=== PATIENT | female | born 1965 | race Caucasian/White ===

== ENCOUNTER 2019-03-05 18:46 | Observation (INO) | payer OTHER ==
--- OUTSIDE RECORDS SUMMARY | 2019-03-05 18:49 | XMS REPORT | Summary of Care ---
:[address] [facility] Address [address] [place] [address]- Encounter HQ Scott(DENISE) [id number] Date(s): 02/07/19 - 02/07/19 [facility] [address] [place] [address]- [phone] Discharge Disposition: Home or Self Care Attending Physician: Chon Reynoso MD Referring Physician: Chon Reynoso MD Vital Signs Most recent to oldest [Reference Range]: 1 Height 162.56 cm (02/07/19 1:39 PM) Blood Pressure [90-140/60-90 mmHg] 170/86 mmHg *HI* (02/07/19 1:39 PM) Respiratory Rate [14-20 BRMIN] 16 BRMIN (02/07/19 1:39 PM) Peripheral Pulse Rate [60-100 bpm] 83 bpm (02/07/19 1:39 PM) Weight 90.909 kg (02/07/19 1:39 PM) Body Mass Index 34.4 m2 (02/07/19 1:39 PM) Problem List Condition Effective Dates Status Health Status Informant Anxiety(Confirmed) Active Carpal tunnel syndrome(Confirmed) Active Cervical disc disorder(Confirmed) Active Cranial neuritis(Confirmed) Active Fibromyalgia(Confirmed) Active Hypertension(Confirmed) Active Insomnia(Confirmed) Active Lumbar radiculopathy(Confirmed) Active Earache(Confirmed) Active Panic disorder(Confirmed) Active Allergies, Adverse Reactions, Alerts Substance Reaction Severity Status morphine Moderate Active traMADol Moderate Active Medications Abilify PO, Daily, 0 Refill(s) Start Date: 02/07/19 Status: Orderedgabapentin 600 mg oral tablet =1 tab, PO, TID, # 90 tab, 3 Refill(s), Pharmacy: [facility] [id number] Start Date: 02/07/19 Status: Ordered Results No data available for this section Immunizations No data available for this section Procedures Procedure Date Related Diagnosis Body Site Status Ablation Completed Carpal tunnel decompression1 Completed Cholecystectomy Completed Tubal ligation Completed 1surgery Social History Social History Type Response Substance Abuse Use: None. 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 Alcohol Current, Frequency: 1-2 times per week. Smoking Status Former smoker; Type: Cigarettes; Exposure to Tobacco Smoke None ; Cigarette Smoking Last 365 Days No; Reg Smoking Cessation Counseling No entered on: 02/07/19 Assessment and Plan No data available for this section
--- OUTSIDE RECORDS SUMMARY | 2019-03-05 18:49 | XMS REPORT | Summary of Care ---
:1965 Author Organization [facility] Address [address] [place] [address]- Encounter HQ Scott(DENISE) [id number] Date(s): 02/07/19 - 02/07/19 [facility] [address] [place] [address]- [phone] Discharge Disposition: Home or Self Care Attending [...] TID, # 90 tab, 3 Refill(s), Pharmacy: [facility] [id number] Start Date: 02/07/19 Status: Ordered Results No data available for this section Immunizations No data available for this section Procedures Procedure Date Related Diagnosis Body Site Status Ablation Completed Carpal tunnel decompression1 Completed Cholecystectomy Completed Tubal ligation Completed 1surgery Social History Social History Type Response Substance Abuse Use: None. 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 Alcohol Current, Frequency: 1-2 times per week. Smoking Status Former smoker; Type: Cigarettes; Exposure to Tobacco Smoke None ; Cigarette Smoking Last 365 Days No; Reg Smoking Cessation Counseling No entered on: 02/07/19 Assessment and Plan No data available for this section
--- OUTSIDE RECORDS SUMMARY | 2019-03-05 18:49 | XMS REPORT | Continuity of Care Document ---
:1965 Author Organization Interface Problems Problem Status Onset Classification Date Comments Source Date Reported Anxiety Active Problem 02/10/2019 [facility] Carpal tunnel Active Problem 02/10/2019 [facility] Cervical disc Active Problem 02/10/2019 [facility] Cranial neuritis Active Problem 02/10/2019 [facility] Fibromyalgia Active Problem 02/10/2019 [facility] Hypertension Active Problem 02/10/2019 [facility] Insomnia Active Problem 02/10/2019 [facility] Lumbar Active Problem 02/10/2019 [facility] Earache Active Problem 02/10/2019 [facility] Panic disorder Active Problem 02/10/2019 [facility] Medications Medication Details Route Status Patient Ordering Order Source Instructions Provider Date gabapentin =1 tab, PO, Active 02/08/20 [facility] 600 MG Oral TID, # 90 19 [facility] Tablet tab, 3 Refill(s), Pharmacy: [facility] [id number] Abilify PO, Daily, 0 Active 02/08/20 [facility] Refill(s) 19 [facility] Allergies, Adverse Reactions, Alerts Substance Category Reaction Severity Reaction Status Date Comments Source type Reported morphine Assertion Moderate Drug Active [facility] traMADol Assertion Moderate Drug Active [facility] Immunizations Immunization Date Given Site Status Last Updated Comments Source Results Order Results Value Reference Date Interpretation Comments Source Name Range Vital Signs Vital Sign Value Date Comments Source Weight 90.909 02/07/2019 [facility] BMI Calculated 34.4 02/07/2019 [facility] Height 162.56 cm 02/07/2019 [facility] Heart Rate 83 02/07/2019 [facility] Systolic (mm Hg) 170 02/07/2019 [facility] Diastolic (mm Hg) 86 02/07/2019 [facility] Respitory Rate 16 02/07/2019 [facility] Encounters Location Location Encounter Encounter Reason Attending ADM DC Status Source Details Type Number For Provider Date Date Visit Outpatient [id number] DAVID 02/21 Active [facility] [place] [facility] [id number] DAVID 03/08 Active [facility] [id number] DAVID 04/05 Active [facility] [place] Outpatient [id number] DAVID 05/18 Active [facility] Outpatient [id number] DAVID 07/04 Active [facility] Outpatient [id number] DAVID 08/24 Active [facility] [place] Outpatient [id number] DAVID 10/04 Active [facility] [place] Outpatient [id number] DAVID 11/15 Active [facility] [place] Outpatient [id number] David 02/07 Active [facility] Outpatient [id number] David 02/07 02/08 [facility] [id number] David 06/14 Active [facility] [place] Procedures Procedure Code Date Perfomer Comments Source Ablation [id number] [facility] Carpal tunnel [id number] surgery [facility] decompression<sup>1</ Neuro sup> Cholecystectomy [id number] [facility] Tubal ligation [id number] [facility]
--- OUTSIDE RECORDS SUMMARY | 2019-03-05 18:49 | XMS REPORT | Summary of Care ---
:1965 Author Organization [facility] Address [address] [place] [address]- Encounter HQ Scott(DENISE) [id number] Date(s): 02/07/19 - 02/07/19 [facility] [address] [place] [address]- [phone] Discharge Disposition: Home or Self Care Attending [...] TID, # 90 tab, 3 Refill(s), Pharmacy: [facility] [id number] Start Date: 02/07/19 Status: Ordered Results No data available for this section Immunizations No data available for this section Procedures Procedure Date Related Diagnosis Body Site Status Ablation Completed Carpal tunnel decompression1 Completed Cholecystectomy Completed Tubal ligation Completed 1surgery Social History Social History Type Response Substance Abuse Use: None. 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 Alcohol Current, Frequency: 1-2 times per week. Smoking Status Former smoker; Type: Cigarettes; Exposure to Tobacco Smoke None ; Cigarette Smoking Last 365 Days No; Reg Smoking Cessation Counseling No entered on: 02/07/19 Assessment and Plan No data available for this section
--- OUTSIDE RECORDS SUMMARY | 2019-03-05 18:49 | XMS REPORT | Summary of Care ---
:1965 Author Organization [facility] Address [address] [place] [address]- Encounter HQ Scott(DENISE) [id number] Date(s): 02/07/19 - 02/07/19 [facility] [address] [place] [address]- [phone] Discharge Disposition: Home or Self Care Attending [...] TID, # 90 tab, 3 Refill(s), Pharmacy: [facility] [id number] Start Date: 02/07/19 Status: Ordered Results No data available for this section Immunizations No data available for this section Procedures Procedure Date Related Diagnosis Body Site Status Ablation Completed Carpal tunnel decompression1 Completed Cholecystectomy Completed Tubal ligation Completed 1surgery Social History Social History Type Response Substance Abuse Use: None. 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 Alcohol Current, Frequency: 1-2 times per week. Smoking Status Former smoker; Type: Cigarettes; Exposure to Tobacco Smoke None ; Cigarette Smoking Last 365 Days No; Reg Smoking Cessation Counseling No entered on: 02/07/19 Assessment and Plan No data available for this section
--- NOTE | 2019-03-05 19:54 | RAD REPORT ---
EXAM DESCRIPTION: RAD - Chest Single View - 03/05/2019 7:39 pm CLINICAL HISTORY: Chest pain, dyspnea COMPARISON: October 2014 TECHNIQUE: AP portable chest image was obtained 1936 hours . FINDINGS: Lungs are clear. Heart and vasculature are normal. No measurable pleural effusion and no p neumothorax. No acute bony abnormality seen. No acute aortic findings suspected. IMPRESSION: No acute cardiopulmonary process. No significant interval change.
--- NOTE | 2019-03-05 20:06 | ER ---
Nurse's Notes [facility] Name: Jerzy Liu Age: 53 yrs Sex: Female : 1965 Arrival Date: 03/05/2019 Time: 18:52 Bed 30 Private MD: Diagnosis: Chest pain, unspecified;Essential (primary) hypertension Presentation: 03/05 19:23 Presenting complaint: Patient states: seen by Dr. Ward today at 1630. pt insurance ak1 would not cover stat labs from his office for D-dimer so was instructed to come to ER for evaluation. pt c/o SOB that started last night. pt resp even and unlabored during triage, no resp distress noted. Transition of care: patient was not received from another setting of care. Onset of symptoms is unknown. Risk Assessment: Do you want to hurt yourself or someone else? Patient reports no desire to harm self or others. Care prior to arrival: None. 19:23 Method Of Arrival: Ambulatory ak 19:23 Acuity: KAREEN 3 ak1 21:13 Initial Sepsis Screen: Does the patient meet any 2 criteria? No. Patient's initial mg2 sepsis screen is negative. Does the patient have a suspected source of infection? No. Patient's initial sepsis screen is negative. 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 - Post-menopause ak1 Historical: - Allergies: 19:27 Morphine; ak1 19:27 tramadol; ak1 - Home Meds: 19:27 Xanax 1 mg Oral tab 1 tab 3 times per day [Active]; Xanax 1 mg Oral tab at night ak1 [Active]; trazodone Oral [Active]; Benadryl 25 mg Oral cap 2 caps night [Active]; gabapentin 600 mg oral tab 1 tab 3 times per day [Active]; Wellbutrin Oral 1 tab daily [Active]; Metoprolol Tartrate Oral 1 tab PRN [Active]; Clonazepam Oral 2 tabs at night [Active]; - PMHx: 19:27 Depression; Anxiety; Hypertension; ak1 - PSHx: 19:27 Tubal ligation; Carpal Tunnel Repair; Cholecystectomy; uterine ablasion; ak1 - Immunization history:: Adult Immunizations unknown. - Social history:: Smoking status: Patient/guardian denies using tobacco. - Ebola Screening: : No symptoms or risks identified at this time. - Family history:: not pertinent. Screenin:30 Abuse screen: Denies threats or abuse. Denies injuries from another. Nutritional ca1 screening: No deficits noted. Tuberculosis screening: No symptoms or risk factors identified. Fall Risk None identified. Assessment: 19:30 General: Appears in no apparent distress. comfortable, Behavior is calm, cooperative, ca1 appropriate for age. Pain: Complains of pain in chest Pain does not radiate. Pain currently is 1 out of 10 on a pain scale. at worst was 4 out of 10 on a pain scale. Pain began 1 day ago. Is intermittent. Neuro: Level of Consciousness is awake, alert, obeys commands, Oriented to person, place, time, situation. Cardiovascular: Heart tones S1 S2 present Capillary refill < 3 seconds Patient's skin is warm and dry. Rhythm is sinus bradycardia. Respiratory: Reports shortness of breath at rest since last night Airway is patent Respiratory effort is even, unlabored, Respiratory pattern is regular, symmetrical, Breath sounds are clear bilaterally. GI: Abdomen is round non-distended, Bowel sounds present X 4 quads. Abd is soft and non tender X 4 quads. : No deficits noted. No signs and/or symptoms were reported regarding the genitourinary system. EENT: No deficits noted. No signs and/or symptoms were reported regarding the EENT system. Derm: Skin is intact, is healthy with good turgor, Skin is pink, warm \T\ dry. Musculoskeletal: Circulation, motion, and sensation intact. Capillary refill < 3 seconds, Range of motion: limited in left ankle Pt has a walking boot on left leg. 20:20 Reassessment: Patient appears in no apparent distress at this time. Patient and/or ca1 family updated on plan of care and expected duration. Pain level reassessed. Patient is alert, oriented x 3, equal unlabored respirations, skin warm/dry/pink. 21:12 Reassessment: provider informed about patient's concern about the admission plan. she mg2 will wait for the tests results first before she decides if she wants to be admitted. 22:00 Reassessment: Patient appears in no apparent distress at this time. Patient and/or ca1 family updated on plan of care and expected duration. Pain level reassessed. Patient is alert, oriented x 3, equal unlabored respirations, skin warm/dry/pink. PT states she does not want to be in the hospital but if she needs to be she'll stay Patient denies pain at this time. 22:40 Reassessment: Patient appears in no apparent distress at this time. Patient is alert, ca1 oriented x 3, equal unlabored respirations, skin warm/dry/pink. Pt verbalizes understanding of need for admit. Vital Signs: 19:27 BP 143 / 68; Pulse 68; Resp 18; Temp 98.1; Pulse Ox 99% on R/A; Weight 94.35 kg (R); ak1 Height 5 ft. 4 in. (162.56 cm) (R); Pain 1/10; 20:20 BP 129 / 66; Pulse 65; Resp 16 S; Temp 98.3(O); Pulse Ox 100% on R/A; ca1 21:11 BP 130 / 55; Pulse 67; Resp 17 S; Temp 98.1(O); Pulse Ox 98% on R/A; ca1 22:06 BP 133 / 71; Pulse 73; Resp 17 S; Temp 98.1(O); Pulse Ox 100% on R/A; ca1 22:40 BP 130 / 66; Pulse 72; Resp 17 S; Temp 98.1(O); Pulse Ox 98% on R/A; ca1 19:27 Body Mass Index 35.70 (94.35 kg, 162.56 cm) ak1 ED Course: 18:52 Patient arrived in ED. aj1 18:52 Patient's name was called from ER lobby. No response. aj1 19:01 Ronnie Bernabe PA is PHCP. jr8 19:01 Sea Martinez MD is Attending Physician. jr8 19:16 Charley Sierra, FALGUNI is Primary Nurse. ca1 19:21 Yaerd Altman MD is Attending Physician. [facility] 19:24 Triage completed. ak1 19:27 Arm band placed on Patient placed in an exam room, on a stretcher, on pulse oximetry, ak1 Patient notified of wait time. 19:30 Patient has correct armband on for positive identification. Placed in gown. Bed in low ca1 position. Call light in reach. Side rails up X 1. hand router operator on. Pulse ox on. NIBP on. Warm blanket given. 19:30 No provider procedures requiring assistance completed. ca1 19:40 XRAY Chest (1 view) In Process Unspecified. EDMS 20:06 Oskar Max MD is Hospitalizing Provider. [facility] 20:44 Inserted saline lock: 22 gauge in right forearm, using aseptic technique. Blood mg2 collected. 20:54 Radiology exam delayed due to lab results not completed at this time. (BUN/Creatinine). vm2 22:39 Patient admitted, IV remains in place. ca1 Administered Medications: 20:43 Drug: Aspirin Chewable Tablet 162 mg Route: PO; mg2 22:29 Follow up: Response: No adverse reaction ca1 20:43 Drug: Pepcid 20 mg Route: IVP; Site: right forearm; mg2 22:30 Follow up: Response: No adverse reaction ca1 21:33 Drug: Lovenox 1 mg/kg Route: Sub-Q; Site: right lower abdomen; ca1 22:29 Follow up: Response: No adverse reaction ca1 Outcome: 20:06 Decision to Hospitalize by Provider. [facility] 22:39 Admitted to Med/surg accompanied by tech, via wheelchair, room 207, with chart, Report ca1 called to Jazz Sagastume RN 22:39 Condition: stable 22:39 Instructed on the need for admit. 23:07 Patient left the ED. ca1 Signatures: Dispatcher [employer] EDAmalia Freitas, FALGUNI RN Yared Edouard MD MD cha Roszak, Josh, PA PA jr8 Ally Ybarra RN RN [email or web address] Nancy Mederos 2 Chaz Cisneros RN RN mg2 Charley Sierra RN RN ca1
--- NOTE | 2019-03-05 20:06 | EDPHYS ---
Physician Documentation [facility] Name: Jerzy Liu Age: 53 yrs Sex: Female : 1965 Arrival Date: 03/05/2019 Time: 18:52 Bed 30 Private MD: ED Physician Yared Altman HPI: 03/05 20:02 This 53 yrs old Female presents to ER via Ambulatory with complaints of jamshid Shortness Of Breath. 20:02 The patient has shortness of breath at rest, with light activity. Onset: The jamshid symptoms/episode began/occurred 1 day(s) ago. Duration: The symptoms are intermittent, with no pattern. The patient's shortness of breath has no apparent modifying factors. Associated signs and symptoms: The patient has no apparent associated signs or symptoms. Severity of symptoms: At their worst the symptoms were mild in the emergency department the symptoms are unchanged. The patient has not experienced similar symptoms in the past. 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 ak1 Historical: - Allergies: 19:27 Morphine; ak1 19:27 tramadol; ak1 - Home Meds: 19:27 Xanax 1 mg Oral tab 1 tab 3 times per day [Active]; Xanax 1 mg Oral tab at night ak1 [Active]; trazodone Oral [Active]; Benadryl 25 mg Oral cap 2 caps night [Active]; gabapentin 600 mg oral tab 1 tab 3 times per day [Active]; Wellbutrin Oral 1 tab daily [Active]; Metoprolol Tartrate Oral 1 tab PRN [Active]; Clonazepam Oral 2 tabs at night [Active]; - PMHx: 19:27 Depression; Anxiety; Hypertension; ak1 - PSHx: 19:27 Tubal ligation; Carpal Tunnel Repair; Cholecystectomy; uterine ablasion; ak1 - Immunization history:: Adult Immunizations unknown. - Social history:: Smoking status: Patient/guardian denies using tobacco. - Ebola Screening: : No symptoms or risks identified at this time. - Family history:: not pertinent. ROS: 20:02 Constitutional: Negative for fever, chills, and weight loss, Eyes: Negative for injury, jamshid pain, redness, and discharge, ENT: Negative for injury, pain, and discharge, Neck: Negative for injury, pain, and swelling, Respiratory: Negative for shortness of breath, cough, wheezing, and pleuritic chest pain, Abdomen/GI: Negative for abdominal pain, nausea, vomiting, diarrhea, and constipation, Back: Negative for injury and pain, : Negative for injury, bleeding, discharge, and swelling, MS/Extremity: Negative for injury and deformity, Skin: Negative for injury, rash, and discoloration, Neuro: Negative for headache, weakness, numbness, tingling, and seizure, Psych: Negative for depression, anxiety, suicide ideation, homicidal ideation, and hallucinations, Allergy/Immunology: Negative for hives, rash, and allergies, Endocrine: Negative for neck swelling, polydipsia, polyuria, polyphagia, and marked weight changes, Hematologic/Lymphatic: Negative for swollen nodes, abnormal bleeding, and unusual bruising. 20:02 Cardiovascular: Positive for chest pain. Exam: 20:02 Constitutional: This is a well developed, well nourished patient who is awake, alert, jamshid and in no acute distress. Head/Face: Normocephalic, atraumatic. Eyes: Pupils equal round and reactive to light, extra-ocular motions intact. Lids and lashes normal. Conjunctiva and sclera are non-icteric and not injected. Cornea within normal limits. Periorbital areas with no swelling, redness, or edema. ENT: Nares patent. No nasal discharge, no septal abnormalities noted. Tympanic membranes are normal and external auditory canals are clear. Oropharynx with no redness, swelling, or masses, exudates, or evidence of obstruction, uvula midline. Mucous membranes moist. Neck: Trachea midline, no thyromegaly or masses palpated, and no cervical lymphadenopathy. Supple, full range of motion without nuchal rigidity, or vertebral point tenderness. No Meningismus. Chest/axilla: Normal chest wall appearance and motion. Nontender with no deformity. No lesions are appreciated. Cardiovascular: Regular rate and rhythm with a normal S1 and S2. No gallops, murmurs, or rubs. Normal PMI, no JVD. No pulse deficits. Respiratory: Lungs have equal breath sounds bilaterally, clear to auscultation and percussion. No rales, rhonchi or wheezes noted. No increased work of breathing, no retractions or nasal flaring. Abdomen/GI: Soft, non-tender, with normal bowel sounds. No distension or tympany. No guarding or rebound. No evidence of tenderness throughout. Back: No spinal tenderness. No costovertebral tenderness. Full range of motion. Female : Normal external genitalia. Skin: Warm, dry with normal turgor. Normal color with no rashes, no lesions, and no evidence of cellulitis. MS/ Extremity: Pulses equal, no cyanosis. Neurovascular intact. Full, normal range of motion. Neuro: Awake and alert, GCS 15, oriented to person, place, time, and situation. Cranial nerves II-XII grossly intact. Motor strength 5/5 in all extremities. Sensory grossly intact. Cerebellar exam normal. Normal gait. Psych: Awake, alert, with orientation to person, place and time. Behavior, mood, and affect are within normal limits. 20:02 Musculoskeletal/extremity: DVT Exam: No signs of deep vein thrombosis. no pain, no swelling, no tenderness, negative Homans' sign noted on exam, no appreciated bluish discoloration, no erythema, no increased warmth. Vital Signs: 19:27 BP 143 / 68; Pulse 68; Resp 18; Temp 98.1; Pulse Ox 99% on R/A; Weight 94.35 kg (R); ak1 Height 5 ft. 4 in. (162.56 cm) (R); Pain 1/10; 20:20 BP 129 / 66; Pulse 65; Resp 16 S; Temp 98.3(O); Pulse Ox 100% on R/A; ca1 21:11 BP 130 / 55; Pulse 67; Resp 17 S; Temp 98.1(O); Pulse Ox 98% on R/A; ca1 22:06 BP 133 / 71; Pulse 73; Resp 17 S; Temp 98.1(O); Pulse Ox 100% on R/A; ca1 22:40 BP 130 / 66; Pulse 72; Resp 17 S; Temp 98.1(O); Pulse Ox 98% on R/A; ca1 19:27 Body Mass Index 35.70 (94.35 kg, 162.56 cm) ak1 MDM: 19:01 Patient medically screened. jr8 19:[address] [facility] 20:05 Data reviewed: vital signs, nurses notes, lab test result(s), EKG, radiologic studies, [facility] plain films. 03/05 20:02 Order name: PT-INR; Complete Time: 22:04 [facility] 03/05 20:02 Order name: D-Dimer; Complete Time: 22:04 [facility] 03/05 20:16 Order name: CBC with Diff; Complete Time: 22:04 [facility] 03/05 20:16 Order name: Comprehensive Metabolic Panel; Complete Time: 22:04 [facility] 03/05 20:29 Order name: Liver (Hepatic) Function; Complete Time: 22:04 [facility] 03/05 20:29 Order name: Troponin (Emerg Dept Use Only); Complete Time: 22:04 [facility] 03/05 20:29 Order name: NT PRO-BNP; Complete Time: 22:04 [facility] 03/05 20:29 Order name: Magnesium; Complete Time: 22:04 [facility] 03/05 20:29 Order name: Lipase; Complete Time: 22:04 [facility] 03/05 20:33 Order name: Lipid Profile [facility] 03/05 20:33 Order name: Troponin I [facility] 03/05 20:34 Order name: Troponin I [facility] 03/05 20:34 Order name: Troponin I [facility] 03/05 21:15 Order name: Urine Dipstick--Ancillary (enter results) [facility] 03/05 19:09 Order name: XRAY Chest (1 view); Complete Time: 20:29 [facility] 03/05 19:09 Order name: EKG; Complete Time: 19:11 [facility] 03/05 20:02 Order name: Cardiac monitoring; Complete Time: 21:28 [facility] 03/05 20:02 Order name: EKG - Nurse/Tech; Complete Time: 21:28 [facility] 03/05 20:02 Order name: IV Saline Lock; Complete Time: 21:28 [facility] 03/05 20:02 Order name: Labs collected and sent; Complete Time: 21:28 [facility] 03/05 20:02 Order name: O2 Per Protocol; Complete Time: 21:28 [facility] 03/05 20:02 Order name: O2 Sat Monitoring; Complete Time: 21:28 [facility] 03/05 20:02 Order name: Urine Dipstick-Ancillary (obtain specimen); Complete Time: 21:14 [facility] 03/05 20:32 Order name: CONS Physician Consult [facility] 03/05 20:32 Order name: Echo with Doppler [facility] 03/05 20:32 Order name: EKG Electrocardiogram [facility] 03/05 20:32 Order name: EKG Electrocardiogram [facility] 03/05 20:49 Order name: US Extremity Venous W Compression Ramana [facility] 03/05 20:50 Order name: CT Chest For PE Angio [facility] 03/05 21:15 Order name: Urine --Ancillary (enter results) mw2 03/05 21:19 Order name: Urine --Ancillary; Complete Time: 22:04 [facility] 03/05 21:19 Order name: Urine Dipstick-Ancillary; Complete Time: 22:04 EDMS Administered Medications: 20:43 Drug: Aspirin Chewable Tablet 162 mg Route: PO; mg2 22:29 Follow up: Response: No adverse reaction ca1 20:43 Drug: Pepcid 20 mg Route: IVP; Site: right forearm; mg2 22:30 Follow up: Response: No adverse reaction ca1 21:33 Drug: Lovenox 1 mg/kg Route: Sub-Q; Site: right lower abdomen; ca1 22:29 Follow up: Response: No adverse reaction ca1 Disposition: 03/05/19 20:06 Hospitalization ordered by Oskar Max for Observation. Preliminary diagnosis are Chest pain, unspecified, Essential (primary) hypertension. - Bed requested for Telemetry/MedSurg (observation). - Status is Observation. ca1 - Condition is Stable. - Problem is new. - Symptoms have improved. UTI on Admission? 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 8 19:12 19:09 Labs collected and sent ordered. [facility] 19:12 19:09 Oxygen Per Protocol ordered. [facility] 19:12 19:09 O2 Sat Monitoring ordered. [facility] 19:13 19:10 Basic Metabolic Panel ordered. [facility] EDMS 19:14 19:10 CBC with Automated Diff ordered. EDMS EDMS 19:14 19:11 HEPATIC FUNCTION+C.LAB.BRZ ordered. EDMS EDMS 19:14 19:11 MAGNESIUM+C.LAB.BRZ ordered. EDMS EDMS 19:14 19:11 PROBNP+C.LAB.BRZ ordered. [facility] EDDE 19:14 19:11 PROTIME (+INR)+COAG.LAB.BRZ ordered. [facility] EDDE 19:14 19:11 TROPONIN (EMERG DEPT USE ONLY)+C.LAB.BRZ ordered. [facility] EDDE 19:26 19:09 Cardiac monitoring ordered. yunior aa1 19:26 19:09 EKG - Nurse/Tech ordered. 8 aa1 19:29 19:11 Chest For PE Angio+CT.RAD.BRZ ordered. [facility] EDDE 20:28 20:02 HEPATIC FUNCTION+C.LAB.BRZ ordered. [facility] EDDE 20:28 20:02 MAGNESIUM+C.LAB.BRZ ordered. [facility] EDDE 20:28 20:02 PROBNP+C.LAB.BRZ ordered. [facility] 20:28 20:02 TROPONIN (EMERG DEPT USE ONLY)+C.LAB.BRZ ordered. [facility] EDDE 20:28 20:02 LIPASE+C.LAB.BRZ ordered. [facility] 20:35 20:32 Lipid Profile ordered. [facility] 20:35 20:32 Troponin I ordered. [facility] 21:00 20:06 Hospitalization Ordered by Oskar Max MD for Observation. Preliminary cg diagnosis is Chest pain, unspecified; Essential (primary) hypertension. Bed requested for Telemetry/MedSurg (observation). Status is Observation. Condition is Stable. Problem is new. Symptoms have improved. UTI on Admission? No. jamshid 21:05 21:00 03/05/2019 20:06 Hospitalization Ordered by Oskar Max MD for Observation. cg Preliminary diagnosis is Chest pain, unspecified; Essential (primary) hypertension. Bed requested for Telemetry/MedSurg (observation). Status is Observation. Condition is Stable. Problem is new. Symptoms have improved. UTI on Admission? No. cg 23:07 21:05 03/05/2019 20:06 Hospitalization Ordered by Oskar Max MD for Observation. ca1 Preliminary diagnosis is Chest pain, unspecified; Essential (primary) hypertension. Bed requested for Telemetry/MedSurg (observation). Status is Observation. Condition is Stable. Problem is new. Symptoms have improved. UTI on Admission? No. cg
[2019-03-05] MEDS ORDERED: MORPHINE 4 MG/ML SYR IV PRN (20:27)
[2019-03-05] MEDS ORDERED: ALPRAZOLAM 0.25 MG TABLET PO PRN (20:27)
[2019-03-05] MEDS ORDERED: ACETAMINOPHEN 500 MG TAB PO PRN (20:27)
[2019-03-05] MEDS ORDERED: ASPIRIN EC 81 MG TAB PO ONE (20:30)
[2019-03-05] MEDS ORDERED: FAMOTIDINE 20 MG/2 ML VIAL IV ONE (20:30)
[2019-03-05 20:51] LABS: Absolute Lymphocytes (CBC) 2.6 K/uL (0.7-4.9); Absolute Monocytes 0.8 K/uL (0.1-1.3); Absolute Neutrophil 5.3 K/uL (1.8-8.0); Basophils % 0.9 % (0-1.3); Eosinophils % 2.5 % (0-4.4); Hematocrit 46.2 % (36.0-45.0); Lymphocytes % 29.3 % (15.3-44.8); MPV 8.3 fL (7.6-11.3); Monocytes % 8.4 % (3.3-12.3)
[2019-03-05 20:53] LABS: Protime INR 0.96
[2019-03-05] MEDS: METOPROLOL TAR 50 MG TAB PO SCH (21:00)
[2019-03-05 21:14] LABS: ALT/SGPT 44 U/L (12-78); AST/SGOT 30 U/L (15-37); Albumin 4.3 g/dL (3.4-5.0); Alkaline Phosphatase 121 U/L (45-117); BUN Blood Urea Nitrogen 15 mg/dL (7-18); Bicarbonate 27 mmol/L (21-32); Bilirubin Direct 0.1 mg/dL (0-0.2); Bilirubin Total 0.6 mg/dL (0.2-1.0); Glucose Level 89 mg/dL (74-106); Lipase 220 U/L (73-393); Magnesium 2.3 mg/dL (1.8-2.4); NT PRO-BNP 55 pg/mL (<125); Potassium 4.2 mmol/L (3.5-5.1); Protein, Total 8.6 g/dL (6.4-8.2); Sodium Level 139 mmol/L (136-145); Troponin (Emerg Dept Use Only) < 0.02 ng/mL (0.0-0.045)
[2019-03-05 21:19] LABS: Urine Blood NEGATIVE (NEG); Urine Glucose NEGATIVE (NEG); Urine Protein NEGATIVE (NEG)
[2019-03-05] MEDS ORDERED: ENOXAPARIN 100 MG/ML SYR SQ ONE (21:39)
--- NOTE | 2019-03-06 05:00 | P.HP ---
Certification for Inpatient Patient admitted to: Observation With expected LOS: <2 Midnights Patient will require the following post-hospital care: None Practitioner: I am a practitioner with admitting privileges, knowledge of patient current condition, hospital course, and medical plan of care. Services: Services provided to patient in accordance with Admission requirements found in Title 42 Section 412.3 of the Code of Federal Regulations Patient History Date of Service: 03/05/19 Reason for admission: Chest pain rule out acute coronary syndrome History of Present Illness: Patient is a 53-year-old female came to the hospital with chest discomfort. Pain was mainly in the sternal region. She describes it more as a pressure sensation. It felt like a blood pressure cuff squeezing her. She came into the emergency room for further evaluation after seeing her PCP. She was supposed to get blood work done of were gently but her insurance 1 cover blood work at the hospital. Decision was made to go to the emergency room for further evaluation. In the emergency room her initial troponins have been negative. Will go ahead and admit her to be ruled out for acute coronary syndrome. 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 She also has a history of hypertension. Will get Cardiology consultation in the morning as well. Allergies morphine Allergy (Verified 03/05/19 23:25) chest pain tramadol Adverse Reaction (Verified 03/05/19 23:25) Nausea/Vomiting Home Medications: ALPRAZolam [Alprazolam] 1 tab PO BEDTIME PRN 03/06/19 ALPRAZolam [Alprazolam] 1 tab PO TID 03/06/19 ARIPiprazole [Aripiprazole] 1 tab PO BEDTIME 03/06/19 Bupropion HCl [Bupropion Xl] 1 tab PO DAILY 03/06/19 Gabapentin 1 tab PO TID 03/06/19 Metoprolol Tartrate [Lopressor*] 1 tab PO DAILY 03/06/19 Temazepam [Restoril*] 1 cap PO BEDTIME 03/06/19 Tizanidine HCl 2 tab PO BEDTIME 03/06/19 - Past Medical/Surgical History Has patient received pneumonia vaccine in the past: No Diabetic: No -: HTN -: Neuropathy -: depression -: anxiety -: PTSD -: Serina -: Carpal tunnel repair -: Tubal ligation -: Ablation of cyst uterus -: ankle surgery - Family History Father Medical History: Hypertension, Diabetes, Cancer Mother Medical History: Cancer - Social History Smoking Status: Former smoker Alcohol use: Yes CD- Drugs: No Caffeine use: Yes Place of Residence: Home Review of Systems 10-point ROS is otherwise unremarkable Physical Examination - Vital Signs Temperature: 98.2 F Blood Pressure: 117/57 Pulse: 71 Respirations: 18 Pulse Ox (%): 98 - Physical Exam General: Alert, In no apparent distress, Oriented x3 HEENT: Atraumatic, PERRLA, Mucous membr. moist/pink, EOMI, Sclerae nonicteric Neck: Supple, 2+ carotid pulse no bruit, No LAD, Without JVD or thyroid abnormality Respiratory: Clear to auscultation bilaterally, Normal air movement Cardiovascular: Regular rate/rhythm, Normal S1 S2, No murmurs Gastrointestinal: Normal bowel sounds, Soft and benign, Non-distended, No tenderness Musculoskeletal: No clubbing, No swelling, No tenderness Integumentary: No rashes Neurological: Normal gait, Normal speech, Normal strength at 5/5 x4 extr, Normal tone, Sensation intact, Cranial nerves 3-12 intact, Normal affect Lymphatics: No axilla or inguinal lymphadenopathy - Studies Laboratory Data (last 24 hrs) 03/05/19 20:27: Troponin I Cancelled, Triglycerides Cancelled, Cholesterol Cancelled, HDL Cholesterol Cancelled, Cholesterol/HDL Ratio Cancelled 03/05/19 20:25: WBC 9.0, Hgb 15.2 H, Hct 46.2 H, Plt Count 258 03/05/19 20:25: PT 11.4, INR 0.96 03/05/19 20:02: Magnesium Cancelled, Total Bilirubin Cancelled, AST Cancelled, ALT Cancelled, Alkaline Phosphatase Cancelled, Lipase Cancelled 03/05/19 19:09: PT Cancelled, INR Cancelled 03/05/19 19:09: WBC Cancelled, Hgb Cancelled, Hct Cancelled, Plt Count Cancelled 03/05/19 19:09: Sodium Cancelled, Potassium Cancelled, BUN Cancelled, Creatinine Cancelled, Glucose Cancelled, Magnesium Cancelled, Total Bilirubin Cancelled, AST Cancelled, ALT Cancelled, Alkaline Phosphatase Cancelled Assessment & Plan - Problems (Diagnosis) (1) Chest pain, rule out acute myocardial infarction Current Visit: Yes Status: Acute (2) History of hypertension Current Visit: Yes Status: Acute - Plan 1. Serial troponins and EKG 2. Cardiology consultation 3. Echocardiogram and further intervention per Cardiology recommendation 4. Anti-platelet therapy, anti coagulation, beta-jade, statin, and O2 as needed 5. IV morphine for pain 6. Nitro p.r.n. Discharge Plan: Home Plan to discharge in: 48 Hours - Advance Directives Does patient have a Living Will: No Does patient have a Durable POA for Healthcare: No - Code Status/Comfort Care Code Status Assessed: Yes Code Status: Full Code Critical Care: No Time Spent Managing PTS Care (In Minutes): 45
--- NOTE | 2019-03-06 07:01 | RAD REPORT ---
EXAM DESCRIPTION: US - Extrem Venous W Compress Ramana - 03/05/2019 9:20 pm CLINICAL HISTORY: Bilateral leg pain COMPARISON: None. TECHNIQUE: Real-time sonographic evaluation of the bilateral lower extremity common femoral, superfi cial femoral, popliteal and posterior tibial veins was performed. FINDINGS: Normal compressibility, flow augmentation, phasic flow and spontaneous flow are identified in the left and right lower extremity common femoral, superficial femoral, popliteal and posterior t ibial veins. No intraluminal filling defects seen. IMPRESSION: No DVT in either lower extremity.
[2019-03-06] MEDS ORDERED: ENOXAPARIN 40 MG/0.4 ML SQ SCH (09:00)
[2019-03-06] MEDS ORDERED: BUPROPION HCL XL 150 MG TAB PO SCH (09:00)
[2019-03-06] MEDS ORDERED: GABAPENTIN 300 MG CAP PO SCH (09:00)
[2019-03-06] MEDS ORDERED: ASPIRIN EC 81 MG TAB PO SCH (09:00)
[2019-03-06] MEDS: METOPROLOL TAR 50 MG TAB PO SCH (09:27)
--- NOTE | 2019-03-06 10:06 | RAD REPORT ---
EXAM DESCRIPTION: CT - Chest For Pe Angio - 03/05/2019 10:28 pm CLINICAL HISTORY: Shortness of breath. COMPARISON: None. TECHNIQUE: CT angiogram of the chest with IV contrast. 3-D MIP images were obtained in coronal and s agittal reconstructions. This exam was performed according to our departmental dose-optimization prog toribio, which includes automated exposure control, adjustment of the mA and/or kV according to patient s ize and/or use of iterative reconstruction technique. FINDINGS: No filling defects are seen in the pulmonary trunk or the left and right main pulmonary ar radha. There is limited evaluation of the segmental branches due to motion artifact. The thyroid gland is normal. No mediastinal or hilar adenopathy. The heart size is normal without per icardial effusion. The thoracic aorta is normal caliber. No consolidation, pleural effusion, or pneum othorax is identified. The visualized upper abdomen demonstrates no acute findings. No acute osseous findings are seen. IMPRESSION: No central pulmonary embolism. Electronically signed by: Chaz Kowalski MD 03/05/2019 9:57 PM CDT Due to temporary technical issues with the PACS/Fluency reporting system, reports are being signed by the in house radiologist as a courtesy to ensure prompt reporting. The interpreting radiologist is f ully responsible for the content of the report.
--- NOTE | 2019-03-06 10:29 | EKG ---
Test Date: 2019-03-05 Test Time: 23:31:10 Barrel Burner: RT MEASUREMENT RESULTS: Intervals: Rate: 60 MA: 134 QRSD: 78 QT: 482 QTc: 482 [place]: P: 6 MA: 134 QRS: 32 T: 15 INTERPRETIVE STATEMENTS: Normal sinus rhythm Prolonged QT Abnormal ECG Compared to ECG 03/05/2019 19:28:47 Prolonged QT interval now present Sinus bradycardia no longer present Electronically Signed On 03-06-19 10:28:19 CDT by Luke Luke
--- NOTE | 2019-03-06 10:30 | EKG ---
Test Date: 2019-03-05 Test Time: 19:28:47 Bulk Driver: CL[place]ON MEASUREMENT RESULTS: Intervals: Rate: 59 HI: 122 QRSD: 74 QT: 420 QTc: 415 [place]: P: 28 HI: 122 QRS: 60 T: 10 INTERPRETIVE STATEMENTS: Sinus bradycardia Otherwise normal ECG No previous ECG available for comparison Electronically Signed On 03-06-19 10:28:52 CDT by Luke Luke
--- NOTE | 2019-03-06 12:07 | P.SSS ---
Patient History Date of Service: 03/06/19 Reason for admission: Chest pain rule out acute coronary syndrome History of Present Illness: Patient is a 53-year-old female came to the hospital with chest discomfort. Pain was mainly in the sternal region. She describes it more as a pressure sensation. It felt like a blood pressure cuff squeezing her. She came into the emergency room for further evaluation after seeing her PCP. She was supposed to get blood work done of were gently but her insurance 1 cover blood work at the hospital. Decision was made to go to the emergency room for further evaluation. In the emergency room her initial troponins have been negative. Will go ahead and admit her to be ruled out for acute coronary syndrome. 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 She also has a history of hypertension. Will get Cardiology consultation in the morning as well. Allergies morphine Allergy (Verified 03/05/19 23:25) chest pain tramadol Adverse Reaction (Verified 03/05/19 23:25) Nausea/Vomiting Home Medications: ALPRAZolam [Alprazolam] 1 tab PO BEDTIME PRN 03/06/19 ALPRAZolam [Alprazolam] 1 tab PO TID 03/06/19 ARIPiprazole [Aripiprazole] 1 tab PO BEDTIME 03/06/19 Bupropion HCl [Bupropion Xl] 3 tab PO DAILY 03/06/19 Gabapentin 1 tab PO TID 03/06/19 Metoprolol Tartrate [Lopressor*] 1 tab PO DAILY 03/06/19 Temazepam [Restoril*] 1 cap PO BEDTIME 03/06/19 Tizanidine HCl 2 tab PO BEDTIME 03/06/19 - Past Medical/Surgical History Has patient received pneumonia vaccine in the past: No Diabetic: No -: HTN -: Neuropathy -: depression -: anxiety -: PTSD -: Serina -: Carpal tunnel repair -: Tubal ligation -: Ablation of cyst uterus -: ankle surgery - Family History Father -: Hypertension, Diabetes, Cancer Mother -: Cancer - Social History Smoking Status: Former smoker Alcohol use: Yes CD- Drugs: No Caffeine use: Yes Place of Residence: Home Review of Systems 10-point ROS is otherwise unremarkable Physical Examination - Vital Signs Temperature: 98.1 F Blood Pressure: 132/61 Pulse: 75 Respirations: 18 Pulse Ox (%): 100 - Physical Exam General: Alert, In no apparent distress HEENT: Atraumatic, PERRLA, Mucous membr. moist/pink, EOMI, Sclerae nonicteric Neck: Supple, 2+ carotid pulse no bruit, No LAD, Without JVD or thyroid abnormality Respiratory: Clear to auscultation bilaterally, Normal air movement Cardiovascular: Regular rate/rhythm, Normal S1 S2 Gastrointestinal: Normal bowel sounds, No tenderness Musculoskeletal: No tenderness Integumentary: No rashes Neurological: Normal gait, Normal speech, Normal strength at 5/5 x4 extr, Normal tone, Normal affect Lymphatics: No axilla or inguinal lymphadenopathy - Studies Laboratory Data (last 24 hrs) 03/05/19 20:27: Troponin I Cancelled, Triglycerides Cancelled, Cholesterol Cancelled, HDL Cholesterol Cancelled, Cholesterol/HDL Ratio Cancelled 03/05/19 20:25: WBC 9.0, Hgb 15.2 H, Hct 46.2 H, Plt Count 258 03/05/19 20:25: PT 11.4, INR 0.96 03/05/19 20:02: Magnesium Cancelled, Total Bilirubin Cancelled, AST Cancelled, ALT Cancelled, Alkaline Phosphatase Cancelled, Lipase Cancelled 03/05/19 19:09: PT Cancelled, INR Cancelled 03/05/19 19:09: WBC Cancelled, Hgb Cancelled, Hct Cancelled, Plt Count Cancelled 03/05/19 19:09: Sodium Cancelled, Potassium Cancelled, BUN Cancelled, Creatinine Cancelled, Glucose Cancelled, Magnesium Cancelled, Total Bilirubin Cancelled, AST Cancelled, ALT Cancelled, Alkaline Phosphatase Cancelled - Diagnosis (Problem(s)) (1) Chest pain, rule out acute myocardial infarction Current Visit: Yes Status: Acute (2) History of hypertension Current Visit: Yes Status: Chronic Treatment Summary: Overall during the hospital stay patient remained stable Patient was initially admitted to the hospital for chest pain rule out ACS. Troponin x2 were negative EKG was within normal limits. Cardiology was consulted. Cardiology recommended the patient be discharged home under stable condition have outpatient workup done. Patient's chest pain did resolve here in the hospital was doing well overall and was observed for 24 hr and thus was discharged home under stable condition. - Disposition Disposition: ROUTINE DISCHARGE Condition: GOOD Diet: Regular Activity: Ad leann
--- NOTE | 2019-03-06 13:45 | ECHO ---
HEIGHT: 5 ft 4 in WEIGHT: 204 lb 9.6 oz DATE OF STUDY: 03/06/[address]: Oskar Max MD 2-DIMENSIONAL: YES M.MODE: YES DOPPLER: YES COLOR FLOW: YES TDS: NO PORTABLE: NO DEFINITY: NO BUBBLE STUDY: NO DIAGNOSIS: CHEST PAIN RULE OUT ACS CARDIAC HISTORY: CATHERIZATION: NO SURGERY: NO PROSTHETIC VALVE: NO PACEMAKER: NO MEASUREMENTS (cm) DIASTOLIC (NORMALS) SYSTOLIC (NORMALS) IVSd 0.9 (0.6-1.2) LA Diam 3.0 (1.9-4.0) LVEF 78% LVIDd 3.8 (3.5-5.7) LVIDs 2.1 (2.0-3.5) %FS 46% LVPWd 1.0 (0.6-1.2) Ao Diam 2.5 (2.0-3.7) 2 DIMENSIONAL ASSESSMENT: RIGHT ATRIUM: NORMAL LEFT ATRIUM: NORMAL RIGHT VENTRICLE: NORMAL LEFT VENTRICLE: NORMAL TRICUSPID VALVE: NORMAL MITRAL VALVE: NORMAL PULMONIC VALVE: NORMAL AORTIC VALVE: NORMAL PERICARDIAL EFFUSION: NONE AORTIC ROOT: NORMAL LEFT VENTRICULAR WALL MOTION: NORMAL DOPPLER/COLOR FLOW: NORMAL COMMENTS: NORMAL 2D ECHOCARDIOGRAM WITH DOPPLER. TECHNOLOGIST: Brendan CHAMPAGNE
--- NOTE | 2019-03-06 15:23 | CON ---
Chief Complaint: Shortness of breath and pressure in the chest. History Of Present Illness: Ms. Liu never had any heart disease. She takes blood pressure medicin es. She does not have diabetes. She has mild hypertension, dyslipidemia and anxiety disorder. She is allergic to morphine and tramadol. Uses no tobacco. No illegal drugs. Has normal exertional int olerance. Physical Examination: General: 5 feet 4 inch, 204 pounds. Alert, oriented, pleasant, not in distress. Lungs: Clear. Heart exam: Normal. Abdomen: Soft. Extremities: Normal. EKG is normal. It shows sinus bradycardia, otherwise it is normal. I would recommend the patient be allowed to be discharged. We can do an outpatient stress test on he r and she does not need to be in the hospital. GIOVANI Voice ID: [id number] Report ID: [id number]
[2019-03-06] MEDS ORDERED: ARIPiprazole 5 MG TAB PO SCH (21:00)
[2019-03-06] MEDS ORDERED: TIZANIDINE 4 MG TABLET PO SCH (21:00)
[2019-03-06] MEDS ORDERED: TEMAZEPAM 15 MG CAP PO SCH (21:00)
[2019-03-07] MEDS ORDERED: BUPROPION HCL XL 150 MG TAB PO SCH (09:00)
== END 2019-03-06 12:45 | disposition home or self-care (01) ==
LOC: ER 18:46 → ERHOLD 20:42 → 2ND 22:40
PROVIDERS: ADMIT Hospitalist; ATTEND Family Medicine
DX: R07.9 Chest pain, unspecified (principal); R00.1 Bradycardia, unspecified; I10 Essential (primary) hypertension; E78.5 Hyperlipidemia, unspecified; F41.9 Anxiety disorder, unspecified; G62.9 Polyneuropathy, unspecified; F32.9 Major depressive disorder, single episode, unspecified; F43.10 Post-traumatic stress disorder, unspecified; Z79.899 Other long term (current) drug therapy; Z87.891 Personal history of nicotine dependence
CPT/HCPCS: 36415; 71045; 71275; 80053; 80061; 81003; 81025; 82248; 83690; 83735; 83880; 84484; 85025; 85379; 85610; 93005; 93306; 93970; 94010; 96372; 96374; 99285; G0378; J1650; Q9967

== ENCOUNTER 2022-08-23 12:18 | Emergency (ER) | payer OTHER ==
--- OUTSIDE RECORDS SUMMARY | 2022-08-23 12:23 | XMS REPORT | Continuity of Care Document ---
:1965 Author Organization [facility] t Address Formerly [facility] Daniel Fontanez [address] [place] [id number] Care Team Providers Name Role Phone Chon Reynoso Attending Clinician GC_SWHATBIC_Cone_S Attending Clinician Unavailable GC_SWHATBIC_Cone_S Admitting Clinician Unavailable Payers Payer Name Policy Type Policy Number Effective Date Expiration Date Ren sosa AELAQUITA (POS) [id number] 2013 00:00:00 MEDICARE [place]: [id number] 2018 [employer] 00:00:00 Problems Condition Condition Condition Status Onset Resolution Last Treating Co mments Source Name Details Category Date Date Treatment Clinician Date Anxiety Anxiety Problem Active 2022-08-18 Me moria (finding) (finding) 03:20:48 l Active [place] Problem 08/18/2022 [facility], [facility] [place] Carpal Carpal Problem Active 2022-08-18 Nba aileen tunnel tunnel 03:20:48 l syndrome syndrome Kun n (disorder) (disorder) Active Problem 08/18/2022 [facility], [facility] [place] Cervical Cervical Problem Active 2022-08-18 Memoria disc disc 03:20:48 l disorder disorder Kun n (disorder) (disorder) Active Problem 08/18/2022 [facility], [facility] [place] Cranial Cranial Problem Active 2022-08-18 Me moria neuritis neuritis 03:20:48 l (disorder) (disorder) He rmann Active Problem 08/18/2022 [facility], [facility] [place] Fibromyalg Fibromyal Problem Active 2022-08-18 Memoria ia donald 03:20:48 l (disorder) (disorder) He rmann Active Problem 08/18/2022 [facility], [facility] [place] Hypertensi Hypertens Problem Active 2022-08-18 Memoria ve carlos 03:20:48 l disorder, disorder, Herm amira systemic systemic arterial arterial (disorder) (disorder) Active Problem 08/18/2022 [facility], [facility] [place] Insomnia Insomnia Problem Active 2022-08-18 Memoria (disorder) (disorder) 03:20:48 l Active [place] Problem 08/18/2022 [facility], [facility] [place] Lumbar Lumbar Problem Active 2022-08-18 Nba aileen radiculopa radiculopa 03:20:48 l thy thy Daniel (disorder) (disorder) Active Problem 08/18/2022 [facility], [facility] [place] Otalgia Otalgia Problem Active 2022-08-18 Me moria (disorder) (disorder) 03:20:48 l Active Daniel Problem 08/18/2022 [facility], [facility] [place] Panic Panic Problem Active 2022-08-18 Memor ia disorder disorder 03:20:48 l (disorder) (disorder) He rmann Active Problem 08/18/2022 [facility], [facility] [place] Posttrauma Posttraum Problem Active 2022-08-18 Memoria tic stress atic 03:20:48 l disorder stress Daniel (disorder) disorder (disorder) Active Problem 08/18/2022 [facility], [facility] [place] Thoracic Thoracic Problem Active 2022-08-18 Memoria radiculiti radiculiti 03:20:48 l s s Daniel (disorder) (disorder) Active Problem 08/18/2022 [facility], [facility] [place] Rheumatoid Rheumatoi Problem Active 2022-08-18 Memoria arthritis d 03:20:48 l (disorder) arthritis Her farmer (disorder) Active Problem 08/18/2022 [facility], [facility] [place] Tinnitus Tinnitus Problem Active 2022-08-18 Memoria (finding) (finding) 03:20:48 l Active [place] Problem 08/18/2022 [facility], [facility] [place] Paresthesi Paresthes Problem Active 2022-08-18 Memoria a ia 03:20:48 l (finding) (finding) Herm amira Active Problem 08/18/2022 [facility] H93.19 - H93.19 - Diagnosis Active 2022-06-07 Memoria TINNITUS, TINNITUS, 10:38:00 l UNSPECIFIE UNSPECIFIE He rmann D EAR D EAR M79.7 M79.7 Active [facility] [place] Allergies, Adverse Reactions, Alerts Allergy Allergy Status Severity Reaction(s) Onset Inactive Treating Comm ents Source Name Type Date Date Clinician morphine morphine Active Memori a l [place] traMADol traMADol Active Memori a l Daniel sulfADIA sulfADIA Active Memori a ZINE ZINE l [place] hydroxyc hydroxyc Active Memori a hloroqui hloroqui l ne ne Daniel Social History Social Habit Start Date Stop Date Quantity Comments Source Social History 2018-02-21 2018-02-21 [facility] 15:05:51 15:05:51 Smoking Status Start Date Stop Date Source Tobacco smoking status 2022-08-15 14:52:53 2022-08-15 14:52:53 M [facility]orial [place] Medications Ordered Filled Start Stop Current Ordering Indication Dosage Frequency Signature Comments Components Source Medication Medication Date Date Medication? Clinician (SIG) Name Name carBAMazepi 2021-10 Yes 100 mg = 1 Memoria ne 100 mg 0-31 tab, PO, l oral 15:17: BID, TAKE Daniel tablet, 00 1 TABLET extended BY MOUTH release EVERY 12 HOURS, # 180 tab, 1 Refill(s), [facility], 160.02, cm, 08/15/22 9:59:00 CDT, Height, 83.182, kg, 08/15/22 9:59:00 CDT, Weight gabapentin 2021-10 Yes = 1 tab, Mem oria 600 mg oral 0-03 PO, TID, # l tablet 21:57: 270 tab, 2 Haritha nn 00 Refill(s), Pharmacy: [facility], 160.02, cm, 06/17/22 9:38:00 CDT, Height, 82.273, kg, 06/17/22 9:38:00 CDT, Weight gabapentin Yes 300 mg = 1 M emoria 300 mg oral 8-11 cap, PO, l capsule 20:06: BID, # 180 Herm amira 00 cap, 1 Refill(s), [id number], 160.02, cm, 05/26/22 14:51:00 CDT, Height, 80.966, kg, 05/26/22 14:51:00 CDT, Weight tizanidine Yes = 2 cap, Mem oria 2 mg oral 5-09 PO, l capsule 15:03: Bedtime, Kun n 00 PRN NEEDED FOR MUSCLE SPASM, # 180 unknown unit, 1 Refill(s), [facility], 160.02, cm, 01/27/22 13:18:00 CDT, Height, 79.091, kg, 01/27/22 13:18:00 CDT, Weight Cymbalta 60 0 Yes 60 mg = 1 M emoria mg oral 4-14 cap, PO, l delayed 19:08: Daily, # Kun n release 00 90 cap, 0 capsule Refill(s) Methotrexat 2020-10 Yes 0 Memori a e 2-14 Refill(s) l 21:08: Daniel 00 methotrexat 2020-10 Yes 0 Memori a e 2-14 Refill(s) l 21:08: [place] 00 Folic Acid 2020-10 Yes 1 mg = 1 Mem oria 1 MG Oral 2-14 tab, PO, l Tablet 21:07: Daily, 0 [place] 00 Refill(s) folic acid 2020-10 Yes 1 mg = 1 Mem oria 1 mg oral 2-14 tab, PO, l tablet 21:07: Daily, 0 [place] 00 Refill(s) leflunomide Yes TAKE 1 Nba aileen 20 mg oral 5-12 TABLET BY l tablet 21:02: MOUTH Daniel 00 EVERY DAY leflunomide 0 Yes PO, Daily, Memoria 5-12 0 l 19:39: Refill(s) [place] 00 tizanidine Yes = 2 cap, Mem oria 2 mg oral 5-12 PO, l capsule 19:09: Bedtime, Kun n 00 PRN NEEDED FOR MUSCLE SPASM, # 180 cap, 1 Refill(s), Pharmacy: 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, Height, 86.364, kg, 08/27/20 11:44:00 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, Weight tizanidine 2019- Yes = 2 cap, Mem oria 2 mg oral 1-12 PO, l capsule 17:54: Bedtime, Kun n 00 PRN NEEDED FOR MUSCLE SPASM, # 30 cap, 5 Refill(s), Pharmacy: [facility] #[id number], 162.56, cm, 08/27/20 11:44:00 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, Height, 86.364, kg, 08/27/20 11:44:00 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, Weight Hydroxychlo 2020-1 Yes 200 mg, Mem oria roquine 1-12 PO, BID, 0 l 17:45: Refill(s) Daniel 00 hydroxychlo 2020-1 Yes 200 mg, Mem oria roquine 1-12 PO, BID, 0 l 17:45: Refill(s) Daniel gabapentin 2020-0 Yes = 1 tab, Mem oria 600 MG Oral 5-13 PO, TID, # l Tablet 16:33: 90 tab, 5 Kun n 00 Refill(s), Pharmacy: [facility] #[id number] tizanidine 2020-0 Yes = 2 cap, Mem oria 2 mg oral 5-13 PO, l capsule 16:33: Bedtime, Kun n 00 PRN NEEDED FOR MUSCLE SPASM, # 60 cap, 2 Refill(s), Pharmacy: [facility] #[id number] Trintellix Yes 20 mg, PO, M emoria 2-13 Daily, 0 l 19:32: Refill(s) tizanidine 2018-10 Yes = 2 cap, Mem oria 2 mg oral 2-19 PO, l capsule 19:57: Bedtime, Kun n 26 PRN NEEDED FOR MUSCLE SPASM, # 60 cap, 2 Refill(s), Pharmacy: [facility] #[id number] Trileptal 2018-10 Yes 600 mg = 1 Me moria 1-14 tab, PO, l 15:30: BID, # 30 Daniel 00 tab, 0 Refill(s) Buspar 0 Yes 5 mg, PO, Memori a 8-20 BID, 0 l 19:36: Refill(s) BuSpar Yes 5 mg, PO, Memori a 8-20 BID, 0 l 19:36: Refill(s) tizanidine Yes = 2 cap, Mem oria 2 mg oral 5-20 PO, l capsule 18:33: Bedtime, Kun n 26 PRN NEEDED FOR MUSCLE SPASM, # 60 unknown unit, Refill(s) 3, Pharmacy: [facility] [id number] gabapentin Yes = 1 tab, Mem oria 600 MG Oral 4-25 PO, TID, # l Tablet 19:06: 90 tab, 3 Kun n 14 Refill(s), Pharmacy: [facility] [id number] Abilify Yes PO, Daily, Nba aileen 4-25 0 l 19:05: Refill(s) Abilify 0 Yes PO, Daily, Nba aileen 4-25 0 l 19:05: Refill(s) gabapentin No = 1 tab, Mem oria 600 MG Oral 2-12 PO, TID, # l Tablet 01:26: 90 tab, Daniel 33 Refill(s) 2, Pharmacy: [facility] [id number] tizanidine No 4 mg = 2 Mem oria 2 MG Oral 1-31 cap, PO, l Capsule 22:10: Bedtime, Kun n [Zanaflex] 00 PRN for muscle spasm, # 60 cap, 3 Refill(s), Pharmacy: [facility] [id number] gabapentin 2017- No 600 mg = 1 M emoria 600 MG Oral 2-20 tab, PO, l Tablet 22:38: TID, # 90 Kun n 00 tab, 1 Refill(s), Pharmacy: [facility] [id number] ALPRAZOLam 2018-0 Yes See Memoria 1 mg oral 5-09 Instructio l tablet 14:54: ns, 1 tab Kun n 00 PO TID, 0 Refill(s) QUEtiapine 2018-0 Yes 200 mg = 1 M emoria 200 mg oral 5-09 tab, PO, l tablet 14:54: BID, 0 [place] 00 Refill(s) metoprolol 2018-0 Yes 25 mg = 1 Me moria 25 mg oral 5-09 tab, PO, l tablet, 14:54: QID, 0 Daniel extended 00 Refill(s) release omeprazole 2018-0 Yes 40 mg = 1 Me moria 40 mg oral 5-09 cap, PO, l delayed 14:54: Daily, 0 Kun n release 00 Refill(s) capsule hyoscyamine 2018-0 Yes 0.125 mg = Memoria 0.125 mg 5-09 1 tab, PO, l oral tablet 14:54: QID, 0 Herm amira 00 Refill(s) magnesium 2018-0 Yes 500 mg = 1 Me moria oxide 500 5-09 tab, PO, l mg oral 14:54: Daily, 0 Kun n tablet 00 Refill(s) Vitamin D3 2018-0 Yes 0 Memoria 5-09 Refill(s) l 14:54: Daniel 00 multivitami 2018-0 Yes Daily, 0 Me moria n 5-09 Refill(s) l 14:54: [place] 00 Vital Signs Vital Name Observation Time Observation Value Comments Source Height 2022-08-15 14:50:00 5 [ft_i] Gregg Sanchez Weight 2022-08-15 14:50:00 [facility] Daniel BMI Calculated 2022-08-15 14:50:00 Esthela Campos Systolic (mm Hg) 2022-08-15 14:50:00 Nba Sanchez Diastolic (mm Hg) 2022-08-15 14:50:00 Mem orial [place] Heart Rate 2022-08-15 14:50:00 Memorial [place] Systolic (mm Hg) 2022-06-17 14:25:00 Nba rial [place] Diastolic (mm Hg) 2022-06-17 14:25:00 Mem orial [place] Heart Rate 2022-06-17 14:25:00 Memorial [place] Respitory Rate 2022-06-17 14:25:00 Memori al [place] Height 2022-06-17 14:25:00 160.02 cm [facility] Daniel Weight 2022-06-17 14:25:00 [facility] Daniel BMI Calculated 2022-06-17 14:25:00 Memori al Daniel Systolic (mm Hg) 2022-05-26 19:41:00 Nba rial [place] Diastolic (mm Hg) 2022-05-26 19:41:00 Mem orial Daniel Heart Rate 2022-05-26 19:41:00 Memorial [place] Respitory Rate 2022-05-26 19:41:00 Memori al [place] Height 2022-05-26 19:41:00 160.02 cm Memorial Daniel Weight 2022-05-26 19:41:00 [facility] Daniel BMI Calculated 2022-05-26 19:41:00 Memori al Daniel Systolic (mm Hg) 2022-01-27 18:18:00 Nba rial [place] Diastolic (mm Hg) 2022-01-27 18:18:00 Mem orial Daniel Heart Rate 2022-01-27 18:18:00 [facility] Daniel Respitory Rate 2022-01-27 18:18:00 Memori al [place] Height 2022-01-27 18:18:00 160.02 cm Memorial [place] Weight 2022-01-27 18:18:00 [facility] Daniel BMI Calculated 2022-01-27 18:18:00 Memori al Daniel Systolic (mm Hg) 2021-09-28 20:54:00 Nba rial Daniel Diastolic (mm Hg) 2021-09-28 20:54:00 Mem orial Daniel Heart Rate 2021-09-28 20:54:00 Memorial [place] Height 2021-09-28 20:54:00 162.56 cm Memorial [place] Weight 2021-09-28 20:54:00 [facility] Daniel BMI Calculated 2021-09-28 20:54:00 Memori al [place] Systolic (mm Hg) 2021-06-28 18:12:00 Nba rial Daniel Diastolic (mm Hg) 2021-06-28 18:12:00 Mem orial Daniel Heart Rate 2021-06-28 18:12:00 Memorial [place] Respitory Rate 2021-06-28 18:12:00 Memori al Daniel Height 2021-06-28 18:12:00 160.02 cm Memorial Daniel Weight 2021-06-28 18:12:00 [facility] Daniel BMI Calculated 2021-06-28 18:12:00 Memori al Daniel Systolic (mm Hg) 2021-05-27 18:18:00 Nba rial Daniel Diastolic (mm Hg) 2021-05-27 18:18:00 Mem orial Daniel Heart Rate 2021-05-27 18:18:00 [facility] Daniel Respitory Rate 2021-05-27 18:18:00 Memori al [place] Height 2021-05-27 18:18:00 160.02 cm Memorial [place] Weight 2021-05-27 18:18:00 Memorial [place] BMI Calculated 2021-05-27 18:18:00 Memori al [place] Systolic (mm Hg) 2021-02-24 18:48:00 Nba rial [place] Diastolic (mm Hg) 2021-02-24 18:48:00 Mem orial [place] Heart Rate 2021-02-24 18:48:00 [facility] Daniel Respitory Rate 2021-02-24 18:48:00 Memori al Daniel Height 2021-02-24 18:48:00 162.56 cm [facility] Daniel Weight 2021-02-24 18:48:00 [facility] [place] BMI Calculated 2021-02-24 18:48:00 Memori al Daniel Systolic (mm Hg) 2020-08-27 17:31:00 Nba rial [place] Diastolic (mm Hg) 2020-08-27 17:31:00 Mem orial Daniel Heart Rate 2020-08-27 17:31:00 Memorial [place] Respitory Rate 2020-08-27 17:31:00 Memori al [place] Height 2020-08-27 17:31:00 162.56 cm Memorial Daniel Weight 2020-08-27 17:31:00 [facility] Daniel BMI Calculated 2020-08-27 17:31:00 Memori al Daniel Systolic (mm Hg) 2020-02-26 16:20:00 Nba rial Daniel Diastolic (mm Hg) 2020-02-26 16:20:00 Mem orial Daniel Heart Rate 2020-02-26 16:20:00 [facility] Daniel Respitory Rate 2020-02-26 16:20:00 Memori al [place] Height 2020-02-26 16:20:00 162.56 cm Memorial Daniel Weight 2020-02-26 16:20:00 [facility] [place] BMI Calculated 2020-02-26 16:20:00 Memori al Daniel Temperature Oral (F) 2020-02-26 16:20:00 97.7 F [facility] [place] Systolic (mm Hg) 2019-11-28 19:23:00 Nba rial [place] Diastolic (mm Hg) 2019-11-28 19:23:00 Mem orial Danile Heart Rate 2019-11-28 19:23:00 [facility] Daniel Respitory Rate 2019-11-28 19:23:00 Memori al [place] Height 2019-11-28 19:23:00 162.56 cm Memorial [place] Weight 2019-11-28 19:23:00 Memorial [place] BMI Calculated 2019-11-28 19:23:00 Memori al [place] Systolic (mm Hg) 2019-08-29 15:13:00 Nba rial [place] Diastolic (mm Hg) 2019-08-29 15:13:00 Mem orial [place] Heart Rate 2019-08-29 15:13:00 Memorial [place] Respitory Rate 2019-08-29 15:13:00 Memori al [place] Height 2019-08-29 15:13:00 162.56 cm Memorial [place] Weight 2019-08-29 15:13:00 [facility] Daniel BMI Calculated 2019-08-29 15:13:00 Memori al Daniel Systolic (mm Hg) 2019-07-17 15:05:00 Nba rial Daniel Diastolic (mm Hg) 2019-07-17 15:05:00 Mem orial [place] Heart Rate 2019-07-17 15:05:00 Memorial [place] Respitory Rate 2019-07-17 15:05:00 Memori al [place] Height 2019-07-17 15:05:00 162.56 cm Memorial Daniel Weight 2019-07-17 15:05:00 [facility] Daniel BMI Calculated 2019-07-17 15:05:00 Memori al Daniel Systolic (mm Hg) 2019-06-04 19:01:00 Nba rial [place] Diastolic (mm Hg) 2019-06-04 19:01:00 Mem orial Daniel Heart Rate 2019-06-04 19:01:00 [facility] Daniel Respitory Rate 2019-06-04 19:01:00 Memori al [place] Height 2019-06-04 19:01:00 157.48 cm [facility] Daniel Weight 2019-06-04 19:01:00 [facility] [place] BMI Calculated 2019-06-04 19:01:00 Memori al [place] Weight 2019-02-07 18:39:00 [facility] Daniel BMI Calculated 2019-02-07 18:39:00 Memori al Daniel Height 2019-02-07 18:39:00 162.56 cm [facility] Daniel Heart Rate 2019-02-07 18:39:00 [facility] [place] Systolic (mm Hg) 2019-02-07 18:39:00 Nba rial [place] Diastolic (mm Hg) 2019-02-07 18:39:00 Mem orial Daniel Respitory Rate 2019-02-07 18:39:00 Memori al [place] Systolic (mm Hg) 2018-11-15 21:50:00 Nba rial [place] Diastolic (mm Hg) 2018-11-15 21:50:00 Mem orial Daniel Heart Rate 2018-11-15 21:50:00 Memorial [place] Respitory Rate 2018-11-15 21:50:00 Memori al Daniel Height 2018-11-15 21:50:00 162.56 cm Memorial [place] Weight 2018-11-15 21:50:00 [facility] Daniel BMI Calculated 2018-11-15 21:50:00 Memori al [place] Height 2018-10-04 22:04:00 160.02 cm [facility] Daniel Weight 2018-10-04 22:04:00 [facility] Daniel BMI Calculated 2018-10-04 22:04:00 Memori al [place] Heart Rate 2018-10-04 22:04:00 [facility] Daniel Respitory Rate 2018-10-04 22:04:00 Memori al [place] Systolic (mm Hg) 2018-10-04 22:04:00 Nba fallon Daniel Diastolic (mm Hg) 2018-10-04 22:04:00 Mem orial [place] Height 2018-08-24 15:22:00 162.56 cm [facility] Daniel Weight 2018-08-24 15:22:00 [facility] [place] BMI Calculated 2018-08-24 15:22:00 Memmaribeth al Daniel Heart Rate 2018-08-24 15:22:00 [facility] [place] Respitory Rate 2018-08-24 15:22:00 Memmaribeth al Daniel Systolic (mm Hg) 2018-08-24 15:22:00 Nba fallon Daniel Diastolic (mm Hg) 2018-08-24 15:22:00 Mem orial Daniel Procedures Procedure Date / Time Performing Clinician Source Performed Ablation [facility] Daniel Carpal tunnel [facility] Adniel decompression<sup>1</sup> Cholecystectomy [facility] [place] [facility] Start End Encounter Admission Attending Care Care Encounter Source Date/Time Date/Time Type Type Clinicians Facility Department ID 2022-10-04 2022-10-04 Outpatient MHIE MHIE [id number] Memoria 15:45:00 15:45:00 25 alexx SchwartzDanile 2022-08-15 2022-08-16 Outpatient nullFlavo MNA [id number] Memoria 14:45:00 04:59:59 r Neurology 24 alexx Alber Sanchez 2022-08-15 2022-08-15 Outpatient LISA Reynoso [id number] 09:45:00 23:59:59 Chon 24 Ernesto 2022-08-15 2022-08-15 Outpatient MHIE MHIE [id number] Memoria 09:45:00 09:45:00 24 [place] 2022-07-22 2022-07-22 Outpatient GC_SWHATBIC PRIV PRIV [id number] [facility] 00:00:00 00:00:00 _[facility]_S [id number] Medica l 2022-07-12 2022-07-12 Ambulatory nullFlavo MNA [id number] Memoria 16:45:00 16:45:00 Pre-Reg r Neurology 22 l [place] Daniel 2022-07-12 2022-07-12 Outpatient MHIE MHIE [id number] Memoria 11:45:00 11:45:00 22 alexx Sanchez 2022-07-12 2022-07-12 [facility] [id number] 11:45:00 11:45:00 Chon 22 Ernesto 2022-06-17 2022-06-18 Outpatient nullFlavo MNA [id number] Memoria 14:30:00 04:59:59 r Neurology 23 l Alber Sanchez 2022-06-17 2022-06-17 Outpatient DELICIA [facility] [id number] 09:30:00 23:59:59 Chon 23 Ernesto 2022-06-17 2022-06-17 Outpatient MHIE MHIE [id number] Memoria 09:30:00 09:30:00 23 alexx Sanchez 2022-06-07 2022-06-08 Outpt Diag nullFlavo [facility] [id number] Memoria 15:25:00 04:59:00 Services r Outpatient 00 alexx [facility] Daniel [place] 2022-06-07 2022-06-07 Outpatient Edgardo [place] [id number] 10:25:00 23:59:00 Chon 00 Ernesto 2022-05-26 2022-05-27 Outpatient nullFlavo MNA [id number] Memoria 19:45:00 04:59:59 r Neurology 21 alexx Sanchez 2022-05-26 2022-05-26 Outpatient DELICIA [facility] [id number] 14:45:00 23:59:59 Chon 21 Ernesto 2022-05-26 2022-05-26 Outpatient MHIE IE [id number] Memoria 14:45:00 14:45:00 21 alexx Sanchez 2022-01-27 2022-01-28 Outpatient nullFlavo MNA [id number] Memoria 18:15:00 04:59:59 r Neurology 20 l Alber Sanchez 2022-01-27 2022-01-27 Outpatient BERKLEY ReynosoSCHER MISCHER [id number] 13:15:00 23:59:59 Chon 20 Ernesto 2022-01-27 2022-01-27 Outpatient MHIE IE [id number] Memoria 13:15:00 13:15:00 20 l Daniel 2021-09-28 2021-09-29 Outpatient nullFlavo MNA [id number] Memoria 21:00:00 05:59:59 r Neurology 19 l Alber Sanchez 2021-09-28 2021-09-28 Outpatient BERKLEY ReynosoSCHER MHALANASCHER [id number] 15:00:00 23:59:59 Chon 19 Ernesto 2021-09-28 2021-09-28 Outpatient MHIE MHIE [id number] Memoria 15:00:00 15:00:00 19 l Daniel 2021-08-02 2021-08-02 Outpatient GC_SWHATBIC PRIV PRIV [id number] [facility] 03:42:00 03:42:00 _[facility]_S [id number] Medica l 2021-08-02 2021-08-02 Outpatient GC_SWHATBIC PRIV PRIV [id number] [facility] 00:00:00 00:00:00 _[facility]_S [id number] Medica l 2021-06-28 2021-06-29 Outpatient nullFlavo MNA [id number] Memoria 18:00:00 04:59:59 r Neurology 18 l Alber Sanchez 2021-06-28 2021-06-28 Outpatient BERKLEY ReynosoSCHER MISCHER [id number] 13:00:00 23:59:59 Chon 18 Ernesto 2021-06-28 2021-06-28 Outpatient MHIE MHIE [id number] Memoria 13:00:00 13:00:00 18 alexx Sanchez 2021-05-27 2021-05-28 Outpatient nullFlavo MNA [id number] Memoria 18:30:00 04:59:59 r Neurology 17 l Alber Sanchez 2021-05-27 2021-05-27 Outpatient BERKLEY ReynosoSCHER MHMISCHER [id number] 13:30:00 23:59:59 Chon 17 Ernesto 2021-05-27 2021-05-27 Outpatient MHIE MHIE [id number] Memoria 13:30:00 13:30:00 17 alexx Sanchez 2021-02-24 2021-02-25 Outpatient nullFlavo MNA [id number] Memoria 18:30:00 04:59:59 r Neurology 16 l Alber Sanchez 2021-02-24 2021-02-24 Outpatient Edgardo MHMISCHER MHMISCHER [id number] 13:30:00 23:59:59 Chon 16 Ernesto 2021-02-24 2021-02-24 Outpatient MHIE MHIE [id number] Memoria 13:30:00 13:30:00 16 alexx [place] 2020-08-27 2020-08-28 Outpatient nullFlavo MNA [id number] Memoria 17:15:00 05:59:59 r Neurology 15 l Alber [place] 2020-08-27 2020-08-27 Outpatient Edgardo MHMISCHER MHMISCHER [id number] 11:15:00 23:59:59 Chon 15 Ernesto 2020-08-27 2020-08-27 Ambulatory nullFlavo MNA [id number] Memoria 17:15:00 17:15:00 Pre-Reg r Neurology 14 l [place] 2020-08-27 2020-08-27 Outpatient MHIE MHIE [id number] Memoria 11:15:00 11:15:00 14 l Daniel 2020-08-27 2020-08-27 Outpatient MHIE MHIE [id number] Memoria 11:15:00 11:15:00 15 l [place] 2020-08-27 2020-08-27 Outpatient Edgardo MHMISCHER MHMISCHER [id number] 11:15:00 11:15:00 Chon 14 Ernesto 2020-02-26 2020-02-27 Outpatient nullFlavo MNA [id number] Memoria 16:00:00 04:59:59 r Neurology 13 l [place] 2020-02-26 2020-02-26 Outpatient Edgardo MHMISCHER MHMISCHER [id number] 11:00:00 23:59:59 Chon 13 Ernesto 2020-02-26 2020-02-26 Outpatient MHIE MHIE [id number] Memoria 11:00:00 11:00:00 13 alexx [place] 2019-11-28 2019-11-29 Outpatient nullFlavo MNA [id number] Memoria 19:00:00 05:59:59 r Neurology 12 l [place] Daniel 2019-11-28 2019-11-28 Outpatient Krell, MHMISCHER MHMISCHER [id number] 13:00:00 23:59:59 Chon 12 Ernesto 2019-11-28 2019-11-28 Outpatient MHIE MHIE [id number] Memoria 13:00:00 13:00:00 12 alexx SchwartzDaniel 2019-08-29 2019-08-30 Outpatient nullFlavo MNA [id number] Memoria 15:15:00 05:59:59 r Neurology 11 alexx [place] Daniel 2019-08-29 2019-08-29 Outpatient LISA Reynoso MISCHER [id number] 09:15:00 23:59:59 Chon 11 Ernesto 2019-08-29 2019-08-29 Outpatient MHIE MHIE [id number] Memoria 09:15:00 09:15:00 11 alexx Daniel 2019-07-17 2019-07-18 Outpatient nullFlavo MNA [id number] Memoria 15:00:00 04:59:59 r Neurology 10 alexx Alber Sanchez 2019-07-17 2019-07-17 Outpatient LISA Reynoso MISCHER [id number] 10:00:00 23:59:59 Chon 10 Ernesto 2019-07-17 2019-07-17 Outpatient MHIE MHIE [id number] Memoria 10:00:00 10:00:00 10 alexx Daniel 2019-06-04 2019-06-05 Outpatient nullFlavo MNA [id number] Memoria 19:00:00 04:59:59 r Neurology 09 alexx Alber Sanchez 2019-06-04 2019-06-04 Outpatient ILSA Reynoso ALANASCHER [id number] 14:00:00 23:59:59 Chon 09 Ernesto 2019-06-04 2019-06-04 Outpatient MHIE MHIE [id number] Memoria 14:00:00 14:00:00 09 alexx Daniel 2019-02-07 2019-02-08 Outpatient nullFlavo MNA [id number] Memoria 19:00:00 04:59:59 r Neurology 08 alexx Alber Sanchez 2019-02-07 2019-02-07 Outpatient LISA ReynosoSCHER [id number] 14:00:00 23:59:59 Chon 08 Ernesto 2019-02-07 2019-02-07 Outpatient Krell, MHMISCHER MHMISCHER [id number] 14:00:00 23:59:59 Chon 08 Ernesto 2019-02-07 2019-02-07 Outpatient Edgardo, MHMISCHER MHMISCHER [id number] 14:00:00 23:59:59 Chon 08 Ernesto 2019-02-07 2019-02-07 Outpatient Edgardo, MHMISCHER MHMISCHER [id number] 14:00:00 23:59:59 Chon 08 Ernesto 2019-02-07 2019-02-07 Outpatient MHIE MHIE [id number] Memoria 14:00:00 14:00:00 08 alexx Daniel 2018-11-15 2018-11-16 Outpatient nullFlavo MNA [id number] Memoria 21:45:00 05:59:59 r Neurology 07 alexx [place] Daniel 2018-11-15 2018-11-15 Outpatient Edgardo MHMISCHER MHMISCHER [id number] 15:45:00 23:59:59 Chon Hesham Orozco 2018-11-15 2018-11-15 Outpatient MHIE MHIE [id number] Memoria 15:45:00 15:45:00 07 alexx Daniel 2018-10-04 2018-10-05 Outpatient nullFlavo MNA [id number] Memoria 22:00:00 05:59:59 r Neurology 06 alexx [place] Daniel 2018-10-04 2018-10-04 Outpatient Edgardo MHMISCHER MHMISCHER [id number] 16:00:00 23:59:59 Chon Yoselyn Orozco 2018-10-04 2018-10-04 Outpatient MHIE MHIE [id number] Memoria 16:00:00 16:00:00 06 alexx Daniel 2018-08-30 2018-09-01 Outside nullFlavo MNA [id number] Memoria 14:47:00 05:59:59 Medical r Neurology 00 l Ben Sanchez 2018-08-30 2018-08-31 Outpatient MHMISCHER MHMISCHER [id number] 08:47:00 23:59:59 00 2018-08-24 2018 Outpatient nullFlavo MNA [id number] Memoria 15:15:00 05:59:59 r Neurology 04 l Alber Sanchez 2018-08-24 2018-08-24 Outpatient LISA Reynoso [id number] 09:15:00 23:59:59 Chon Zion Orozco 2018-08-24 2018-08-24 Outpatient DELICIAIE DELICIAIE [id number] Memoria 09:15:00 09:15:00 04 alexx SchwartzDaniel 2018-07-04 2018-07-04 Outpatient JUSTIN ANDERSON [id number] Memoria 15:00:00 15:00:00 05 alexx Sanchez 2018-05-18 2018-05-18 Outpatient DELICIAIE DELICIAIE [id number] Memoria 08:45:00 08:45:00 03 alexx Daniel 2018-04-05 2018-04-05 Outpatient JUSTIN NESBITTIE [id number] Memoria 13:00:00 13:00:00 02 alexx Daniel 2018-03-08 2018-03-08 Outpatient JUSTIN ANDERSON [id number] Memoria 11:15:00 11:15:00 01 alexx SchwartzDaniel 2018-02-21 2018-02-21 Outpatient JUSTIN ANDERSON [id number] Memoria 09:45:00 09:45:00 00 alexx Daniel Results Test Description Test Time Test Comments Results Result Comments Source [facility] 2019-08-29 15:46:00 Test Item Value Reference Range Interpretation Comme nts Vitamin B12 Lvl (test code = Vitamin B12 Lvl) [phone] [facility]2019-11-14 15:46:00 Test Item Value Reference Range Interpretation Comments ALANINE AMINOTRANSFERASE (test code = 31 6-29 ALANINE AMINOTRANSFERASE) [facility]2019-11-14 15:46:00 Test Item Value Reference Range Interpretation Comments ASPARTATE TRANSAMINASE (test code = 25 10-35 ASPARTATE TRANSAMINASE) [facility]2019-11-14 15:46:00 Test Item Value Reference Range Interpretation Comments BUN (test code = BUN) 11 7-25 [facility]2019-11-14 15:46:00 Test Item Value Reference Range Interpretation Comments Creatinine Lvl (test code = Creatinine 0.81 0.50-1.05 Lvl) [facility]2019-11-14 15:46:00 Test Item Value Reference Range Interpretation Comments eGFR NON-AFR. JORDANIAN (test code = 82 eGFR NON-AFR. JORDANIAN) [facility]2019-11-14 15:46:00 Test Item Value Reference Range Interpretation Comments eGFR (test code = eGFR 95 ) [facility] MOOLH3952-01-35 15:46:00 Test Item Value Reference Range Interpretation Comments B/C Ratio (test code = B/C NOT APPLICABLE 6-22 Ratio) [facility]inteLztuimbHZOVJIPSGL6418-28-48 15:46:00 Test Item Value Reference Range Interpretation Comments WBC X 10x3 (test code = WBC X 10x3) 6.4 3.8-10.8 [facility]inteJfhdhrbPOBGJEAZSR3126-92-66 15:46:00 Test Item Value Reference Range Interpretation Comments RBC X 10x6 (test code = RBC X 10x6) 4.94 3.80-5.10 [facility] PointeLaauwduEQGWDLAAMS4397-77-24 15:46:00 Test Item Value Reference Range Interpretation Comments Hgb (test code = Hgb) 14.4 11.7-15.5 [facility] PointeXjtkrlsEBULYHXGSD2002-85-35 15:46:00 Test Item Value Reference Range Interpretation Comments Hct (test code = Hct) 43.1 35.0-45.0 [facility] PointeGwxwvsiKIVZXYHEJW4744-14-81 15:46:00 Test Item Value Reference Range Interpretation Comments MCV (test code = MCV) 87.2 80.0-100.0 [facility] PointeZymovqbLTUECSXKPZ9666-37-21 15:46:00 Test Item Value Reference Range Interpretation Comments MCH (test code = MCH) 29.1 pg 27.0-33.0 [facility] PointeRzjloipBUOMQMVNFC4455-37-67 15:46:00 Test Item Value Reference Range Interpretation Comments MCHC (test code = MCHC) 33.4 32.0-36.0 [facility] PointeNgiqevyAHJSBFQVAT6953-64-11 15:46:00 Test Item Value Reference Range Interpretation Comments RDW (test code = RDW) 13.0 11.0-15.0 [facility] PointeDrevnjxUBUVGVFYVZ0969-31-81 15:46:00 Test Item Value Reference Range Interpretation Comments Platelet (test code = Platelet) 255 140-400 [facility] PointeIuziinlSHSUIWPFKH2836-67-10 15:46:00 Test Item Value Reference Range Interpretation Comments MPV (test code = MPV) 10.5 7.5-12.5 [facility] PointeRzgirvqFMSZLTRATH5099-34-85 15:46:00 Test Item Value Reference Range Interpretation Comments Neutrophils # (test code = Neutrophils 3610 9687-7846 #) [facility] PointePechkqkDODJRQQCSE5625-14-50 15:46:00 Test Item Value Reference Range Interpretation Comments Lymphocytes # (test code = Lymphocytes 0989 134-4633 #) [facility] PointeQdgoqizTFBVWLWYAZ3649-72-11 15:46:00 Test Item Value Reference Range Interpretation Comments Monocytes # (test code = Monocytes #) 640 200-950 [facility] PointeBnnkzjnTXENCUOYWT4934-58-32 15:46:00 Test Item Value Reference Range Interpretation Comments Eosinophils # (test code = Eosinophils 198 15-500 #) [facility] PointeAphdetsPSTWLPJFVX3327-10-31 15:46:00 Test Item Value Reference Range Interpretation Comments Basophils # (test code 51 See_Comment [Aut omated message] The = Basophils #) system which generated this result tra nsmitted reference range : <=200. The reference r sangeeta was not used to int erpret this result as normal/abnormal . [facility] PointeNwgngurOFXFRMMUTO2180-07-82 15:46:00 Test Item Value Reference Range Interpretation Comments Segs (test code = Segs) 56.4 [facility] PointeGgkmrtxUOBPYWPABJ7681-71-10 15:46:00 Test Item Value Reference Range Interpretation Comments Lymphocytes (test code = Lymphocytes) 29.7 [facility] PointeDfnutciTYSWCNUJPT6323-91-40 15:46:00 Test Item Value Reference Range Interpretation Comments Monocytes (test code = Monocytes) 10.0 [facility] PointeFkpoduoGHFIKSPZEL5382-76-28 15:46:00 Test Item Value Reference Range Interpretation Comments Eosinophils (test code = Eosinophils) 3.1 [facility] PointeOpbfgwaEXCBTPESTY5755-07-35 15:46:00 Test Item Value Reference Range Interpretation Comments Basophils (test code = Basophils) 0.8 [facility] PointeKfitugjINBCDZSUAV7104-71-90 15:46:00 Test Item Value Reference Range Interpretation Comments Sed Rate (test code = Sed Rate) 11 [facility]2018-12-24 17:25:00 Test Item Value Reference Range Interpretation Comments Bili Total (test code = Bili Total) 0.8 0.2-1.2 [facility]2018-12-24 17:25:00 Test Item Value Reference Range Interpretation Comments Globulin (test code = Globulin) 2.6 1.9-3.7 [facility]2018-12-24 17:25:00 Test Item Value Reference Range Interpretation Comments A/G Ratio (test code = A/G Ratio) 1.7 1.0-2.5 [facility]2018-12-24 17:25:00 Test Item Value Reference Range Interpretation Comments Alk Phos (test code = Alk Phos) 98 33-130 [facility]2018-12-24 17:25:00 Test Item Value Reference Range Interpretation Comments ASPARTATE TRANSAMINASE (test code = 26 10-35 ASPARTATE TRANSAMINASE) [facility]2018-12-24 17:25:00 Test Item Value Reference Range Interpretation Comments CO2 (test code = CO2) 29 20-32 [facility]2018-12-24 17:25:00 Test Item Value Reference Range Interpretation Comments Calcium Lvl (test code = Calcium Lvl) 9.8 8.6-10.4 [facility]2018-12-24 17:25:00 Test Item Value Reference Range Interpretation Comments Potassium Lvl (test code = Potassium 4.5 3.5-5.3 Lvl) [facility]2018-12-24 17:25:00 Test Item Value Reference Range Interpretation Comments Chloride Lvl (test code = Chloride Lvl) 102 98-110 [facility]2018-12-24 17:25:00 Test Item Value Reference Range Interpretation Comments Total Protein (test code = Total 7.1 6.1-8.1 Protein) [facility]2018-12-24 17:25:00 Test Item Value Reference Range Interpretation Comments Albumin Lvl (test code = Albumin Lvl) 4.5 3.6-5.1 [facility]2018-12-24 17:25:00 Test Item Value Reference Range Interpretation Comments ALANINE AMINOTRANSFERASE (test code = 29 6-29 ALANINE AMINOTRANSFERASE) [place] 773278-12-24 17:25:00 Test Item Value Reference Range Interpretation Comments eGFR (test code = eGFR 95 ) [facility]2018-12-24 17:25:00 Test Item Value Reference Range Interpretation Comments B/C Ratio (test code = B/C NOT APPLICABLE 6-22 Ratio) [place] 773278-12-24 17:25:00 Test Item Value Reference Range Interpretation Comments Creatinine Lvl (test code = Creatinine 0.81 0.50-1.05 Lvl) [facility]2018-12-24 17:25:00 Test Item Value Reference Range Interpretation Comments eGFR NON-AFR. JORDANIAN (test code = 82 eGFR NON-AFR. JORDANIAN) [facility]2018-12-24 17:25:00 Test Item Value Reference Range Interpretation Comments Sodium Lvl (test code = Sodium Lvl) 141 135-146 [facility]2018-12-24 17:25:00 Test Item Value Reference Range Interpretation Comments BUN (test code = BUN) 10 7-25 [facility]2018-12-24 17:25:00 Test Item Value Reference Range Interpretation Comments Glucose Lvl (test code = Glucose Lvl) 97 65-99 [facility] PointeQxocshyAFZDWNZNUF7745-63-60 17:25:00 Test Item Value Reference Range Interpretation Comments WBC X 10x3 (test code = WBC X 10x3) 7.6 3.8-10.8 [facility] PointeFjuianxWUTDHPAFHH8849-93-09 17:25:00 Test Item Value Reference Range Interpretation Comments Hgb (test code = Hgb) 14.7 11.7-15.5 [facility] PointeGuxnqnoOFEMLFSBPP3822-47-04 17:25:00 Test Item Value Reference Range Interpretation Comments Hct (test code = Hct) 44.4 35.0-45.0 [facility] PointeLjyrqfdPSNQHSYCEK2545-89-28 17:25:00 Test Item Value Reference Range Interpretation Comments RBC X 10x6 (test code = RBC X 10x6) 5.09 3.80-5.10 [facility] PointeTkkhaxmUWIWZHOYPM1024-49-14 17:25:00 Test Item Value Reference Range Interpretation Comments MPV (test code = MPV) 10.5 7.5-12.5 [facility] PointeRuolibiMNQUAABPCF6499-23-63 17:25:00 Test Item Value Reference Range Interpretation Comments Neutrophils # (test code = Neutrophils 4894 1404-5658 #) [facility] PointeGlbwjnxKKZKSXMJOC8753-99-22 17:25:00 Test Item Value Reference Range Interpretation Comments RDW (test code = RDW) 12.3 11.0-15.0 [place] [id number] 17:25:00 Test Item Value Reference Range Interpretation Comments MCH (test code = MCH) 28.9 pg 27.0-33.0 [facility] PointeTcheoerTPZTWVTLFB3733-18-33 17:25:00 Test Item Value Reference Range Interpretation Comments Platelet (test code = Platelet) 252 140-400 [facility] PointeDnmocbzZTSTMXVISO4961-14-52 17:25:00 Test Item Value Reference Range Interpretation Comments MCV (test code = MCV) 87.2 80.0-100.0 [facility] PointeEafzbuxDGHRSQECUF4846-83-51 17:25:00 Test Item Value Reference Range Interpretation Comments MCHC (test code = MCHC) 33.1 32.0-36.0 [facility] PointePfvjanwMSSUHPDRYX1833-01-63 17:25:00 Test Item Value Reference Range Interpretation Comments Lymphocytes (test code = Lymphocytes) 24.9 [facility] PointeDozxzgtUIGLIOAAAH2736-01-56 17:25:00 Test Item Value Reference Range Interpretation Comments Monocytes (test code = Monocytes) 7.9 [facility] PointeZjzlndxWWXFNTQAJP8230-44-75 17:25:00 Test Item Value Reference Range Interpretation Comments Eosinophils (test code = Eosinophils) 2.0 [facility] PointeGrikytyYEPTINEHUT7740-46-01 17:25:00 Test Item Value Reference Range Interpretation Comments Basophils (test code = Basophils) 0.8 [facility] PointeSbxteafDORGYDHHEJ7521-39-89 17:25:00 Test Item Value Reference Range Interpretation Comments Lymphocytes # (test code = Lymphocytes 8730 994-7044 #) [facility] PointeIexbngeYNESAXSLLP4785-01-06 17:25:00 Test Item Value Reference Range Interpretation Comments Basophils # (test code 61 See_Comment [Aut omated message] The = Basophils #) system which generated this result tra nsmitted reference range : <=200. The reference r sangeeta was not used to int erpret this result as normal/abnormal . [facility] PointeNmnqimiKTQULPMEEL6891-83-91 17:25:00 Test Item Value Reference Range Interpretation Comments Segs (test code = Segs) 64.4 [facility] PointeLeathhpOMDCQBZOBZ8681-79-15 17:25:00 Test Item Value Reference Range Interpretation Comments Monocytes # (test code = Monocytes #) 600 200-950 [facility] PointeNwstgtcIGYXNJKTHU9175-88-07 17:25:00 Test Item Value Reference Range Interpretation Comments Eosinophils # (test code = Eosinophils 152 15-500 #) [facility]
[2022-08-23] MEDS ORDERED: METHYLPREDNISOLONE 125 MG INJ ONE (12:39)
[2022-08-23] MEDS ORDERED: NA CHLORIDE 0.9% 1,000 ML ONE (12:39)
[2022-08-23] MEDS ORDERED: DIPHENHYDRAMINE 50 MG/ML VIAL ONE (12:39)
[2022-08-23] MEDS ORDERED: FAMOTIDINE 20 MG/2 ML VIAL IV ONE (12:39)
[2022-08-23] MEDS ORDERED: ONDANSETRON 4 MG/2 ML VIAL ONE (12:50)
[2022-08-23 13:03] LABS: Absolute Lymphocytes (CBC) 2.9 K/uL (0.7-4.9); Hematocrit 41.2 % (36.0-45.0); Lymphocytes % 42.4 % (15.3-44.8); MCV 89.3 fL (80-100); MPV 7.8 fL (7.6-11.3); RBC Red Blood Cell Count 4.62 M/uL (3.86-4.86)
[2022-08-23 13:21] LABS: Potassium 3.3 mmol/L (3.5-5.1); Troponin High Sensitivity 4.6 pg/mL (<58.9)
--- NOTE | 2022-08-23 13:32 | RAD REPORT ---
EXAM DESCRIPTION: RAD - Chest Single View - 08/23/2022 1:25 pm CLINICAL HISTORY: DYSPNEA Chest pain. COMPARISON: Chest Single View dated 03/05/2019; CHEST PA AND LAT 2 VIEW dated 10/22/2014; CHEST SINGLE VIEW dated 12/15/2013; CHEST PA AND LAT 2 VIEW dated 10/13/2010 FINDINGS: Portable technique limits examination quality. The lungs are grossly clear. The heart is normal in size. No displaced fractures. IMPRESSION: No acute intrathoracic process suspected.
--- NOTE | 2022-08-23 15:15 | ER ---
Nurse's Notes [facility] Name: Jerzy Liu Age: 56 yrs Sex: Female : 1965 Arrival Date: 08/23/2022 Time: 12:19 Bed 19 Private MD: Diagnosis: Adverse reaction to allergy injection Presentation: 08/23 12:33 Chief complaint: Patient states: went to get her allergy shot this morning and after jh5 started feeling clammy, SOB, shaky, and nauseous. Coronavirus screen: Vaccine status: Patient reports receiving the 2nd dose of the covid vaccine. Client denies travel out of the [place] in the last 14 days. Ebola Screen: Patient negative for fever greater than or equal to 101.5 degrees Fahrenheit, and additional compatible Ebola Virus Disease symptoms Patient denies exposure to infectious person. Patient denies travel to an Ebola-affected area in the 21 days before illness onset. Onset: The symptoms/episode began/occurred acutely. Anaphylaxis evaluation, no signs or symptoms of anaphylaxis were noted. Initial Sepsis Screen: Does the patient meet any 2 criteria? Yes Does the patient have a suspected source of infection? No. Patient's initial sepsis screen is negative. Risk Assessment: Do you want to hurt yourself or someone else? Patient reports no desire to harm self or others. 12:33 Method Of Arrival: Ambulatory [facility] 12:33 Acuity: KAREEN 3 jh5 Triage Assessment: 12:35 General: Appears uncomfortable, well groomed, well developed, Behavior is calm, jh5 cooperative, appropriate for age, anxious. Historical: - Allergies: 12:35 Morphine; 5 12:35 tramadol; jh5 - PMHx: 12:35 Anxiety; Depression; Hypertension; RA; Fibromyalgia; jh5 - Immunization history:: Adult Immunizations up to date. - Social history:: Smoking status: Patient/guardian denies using tobacco. Screenin:35 Abuse screen: Denies threats or abuse. Denies injuries from another. Nutritional mb8 screening: No deficits noted. Tuberculosis screening: No symptoms or risk factors identified. Fall Risk None identified. Assessment: 12:35 Pain: Denies pain. Respiratory: Airway is patent Respiratory effort is even, unlabored, mb8 Respiratory pattern is tachypnea Breath sounds are clear bilaterally. Vital Signs: 12:33 BP 139 / 73; Pulse 88; Resp 18; Temp 98.6; Pulse Ox 96% ; Weight 83.01 kg; Height 5 ft. jh5 3 in. (160.02 cm); Pain 0/10; 12:59 BP 119 / 62; Pulse 80; Resp 20; Pulse Ox 99% on R/A; mb8 13:29 BP 126 / 77; Pulse 74; Resp 18; Pulse Ox 99% on R/A; mb8 12:33 Body Mass Index 32.42 (83.01 kg, 160.02 cm) 5 ED Course: 12:19 Patient arrived in ED. as 12:22 [facility] Rdz [facility]C [facility] kb 12:22 Russell Rubi MD is Attending Physician. kb 12:35 Triage completed. 5 12:35 Patient has correct armband on for positive identification. Placed in gown. Bed in low mb8 position. Call light in reach. Side rails up X2. Client placed on continuous cardiac and pulse oximetry monitoring. NIBP monitoring applied. 12:35 Arm band placed on right wrist. 5 12:35 No provider procedures requiring assistance completed. mb8 12:53 Diego Maldonado, RN is Primary Nurse. mb8 13:27 Chest Single View XRAY In Process Unspecified. EDMS 15:32 IV discontinued, intact, bleeding controlled, No redness/swelling at site. Pressure mb8 dressing applied. Administered Medications: 12:48 Drug: NS 0.9% 1000 ml Route: IV; Rate: 1000 ml; Site: right antecubital; mb8 12:50 Drug: SOLU-Medrol (methylPrednisoLONE) 125 mg Route: IVP; Site: right forearm; mb8 12:52 Drug: Benadryl (diphenhydrAMINE) 12.5 mg Route: IVP; Site: right forearm; mb8 12:53 Drug: Pepcid (famotidine) 10 mg Route: IVP; Site: right forearm; mb8 12:53 Drug: Zofran (Ondansetron) 4 mg Route: IVP; Site: right antecubital; mb8 Medication: 12:35 VIS not applicable for this client. mb8 Outcome: 15:15 Discharge ordered by . kb 15:32 Discharged to home ambulatory. mb8 15:32 Condition: stable 15:32 Discharge instructions given to patient, Instructed on discharge instructions, follow up and referral plans. medication usage, Demonstrated understanding of instructions, follow-up care, medications, Prescriptions given X 2. 15:32 Patient left the ED. mb8 Signatures: Dispatcher [employer] EDTanya Francis, YENNI SANCHEZ-Melia Saldana Jessica, RN RN jh5 Diego Maldonado RN RN mb8
--- NOTE | 2022-08-23 15:15 | EDPHYS ---
Physician Documentation [facility] Name: Jerzy Liu Age: 56 yrs Sex: Female : 1965 Arrival Date: 08/23/2022 Time: 12:19 Bed 19 Private MD: ED Physician Russell Rubi HPI: 08/23 15:16 This 56 yrs old Female presents to ER via Ambulatory with complaints of Allergic kb Reaction. 15:16 The patient presents with shortness of breath, nausea, diaphoresis, tremors. Onset: The kb symptoms/episode began/occurred just prior to arrival. Associated signs and symptoms: Pertinent positives: nausea. Possible causes: allergy injection. At home the patient or guardian has treated the symptoms with nothing. Severity of symptoms: At their worst the symptoms were mild moderate in the emergency department the symptoms are unchanged. The patient has not experienced similar symptoms in the past. The patient has been recently seen by a physician:. Pt reports she had an allergy shot today with increased amount of the allergen. States she was fine for the 20 minutes post injection that she was in the office. Left there and went shopping, then started feeling clammy, shaky, nauseous, and short of breath. states she allergy clinic was closed so she came here. Historical: - Allergies: 12:35 Morphine; jh5 12:35 tramadol; jh5 - PMHx: 12:35 Anxiety; Depression; Hypertension; RA; Fibromyalgia; jh5 - Immunization history:: Adult Immunizations up to date. - Social history:: Smoking status: Patient/guardian denies using tobacco. ROS: 15:16 Constitutional: Negative for fever, chills, and weight loss. kb 15:16 Respiratory: Positive for shortness of breath. 15:16 Abdomen/GI: Positive for nausea, Negative for abdominal pain, vomiting, diarrhea, constipation. 15:16 All other systems are negative. Exam: 13:10 Constitutional: This is a well developed, well nourished patient who is awake, alert, kb and in no acute distress. Head/Face: Normocephalic, atraumatic. ENT: Moist Mucous membranes Cardiovascular: Regular rate and rhythm with a normal S1 and S2. No gallops, murmurs, or rubs. No pulse deficits. Respiratory: Respirations even and unlabored. No increased work of breathing. Talking in full sentences Abdomen/GI: Soft, non-tender. No distention Skin: Warm, dry with normal turgor. Normal color. MS/ Extremity: Pulses equal, no cyanosis. Neurovascular intact. Full, normal range of motion. Neuro: Awake and alert, GCS 15, oriented to person, place, time, and situation. Moves all extremities. Normal gait. Psych: Awake, alert, with orientation to person, place and time. Behavior, mood, and affect are within normal limits. 13:10 ECG was reviewed by the Attending Physician. Vital Signs: 12:33 BP 139 / 73; Pulse 88; Resp 18; Temp 98.6; Pulse Ox 96% ; Weight 83.01 kg; Height 5 ft. jh5 3 in. (160.02 cm); Pain 0/10; 12:59 BP 119 / 62; Pulse 80; Resp 20; Pulse Ox 99% on R/A; mb8 13:29 BP 126 / 77; Pulse 74; Resp 18; Pulse Ox 99% on R/A; mb8 12:33 Body Mass Index 32.42 (83.01 kg, 160.02 cm) 5 MDM: 12:22 Patient medically screened. kb 13:11 Data reviewed: vital signs, nurses notes. Data interpreted: Pulse oximetry: on room air kb is 99 %. Interpretation: normal. 15:14 Counseling: I had a detailed discussion with the patient and/or guardian regarding: the kb historical points, exam findings, and any diagnostic results supporting the discharge/admit diagnosis, lab results, radiology results, the need for outpatient follow up, a family practitioner, to return to the emergency department if symptoms worsen or persist or if there are any questions or concerns that arise at home. 15:19 Response to treatment: the patient's symptoms have markedly improved after treatment. kb 08/23 12:32 Order name: CBC with Diff; Complete Time: 13:09 kb 08/23 12:32 Order name: Basic Metabolic Panel; Complete Time: 13:21 kb 08/23 12:32 Order name: Chest Single View XRAY; Complete Time: 13:34 kb 08/23 12:32 Order name: Troponin High Sensitivity; Complete Time: 13:21 kb 08/23 12:32 Order name: IV Start; Complete Time: 12:54 kb 08/23 12:32 Order name: EKG; Complete Time: 12:33 kb 08/23 12:32 Order name: EKG - Nurse/Tech; Complete Time: 12:59 kb EC:10 Rate is 74 beats/min. Rhythm is regular. QRS [place] is Normal. ND interval is normal at kb 144 msec. QRS interval is normal at 74 msec. QT interval is normal at 477 msec. Administered Medications: 12:48 Drug: NS 0.9% 1000 ml Route: IV; Rate: 1000 ml; Site: right antecubital; mb8 12:50 Drug: SOLU-Medrol (methylPrednisoLONE) 125 mg Route: IVP; Site: right forearm; mb8 12:52 Drug: Benadryl (diphenhydrAMINE) 12.5 mg Route: IVP; Site: right forearm; mb8 12:53 Drug: Pepcid (famotidine) 10 mg Route: IVP; Site: right forearm; mb8 12:53 Drug: Zofran (Ondansetron) 4 mg Route: IVP; Site: right antecubital; mb8 Disposition: 17:32 Co-signature as Attending Physician, Russell Rubi MD. rn Disposition Summary: 08/23/22 15:15 Discharge Ordered Location: Home kb Condition: Stable kb Diagnosis - Adverse reaction to allergy injection kb Followup: kb - With: Emergency Department - When: As needed - Reason: Worsening of condition Followup: kb - With: Private Physician - When: 2 - 3 days - Reason: Recheck today's complaints, Continuance of care, Re-evaluation by your physician Discharge Instructions: - Discharge Summary Sheet kb - Allergies, Adult, [id number] kb Forms: - Medication Reconciliation Form kb - Thank You Letter kb - Antibiotic Education kb - Prescription Opioid Use kb Prescriptions: - Pepcid 20 mg Oral Tablet - take 1 tablet by ORAL route every 12 hours for 5 days; 10 tablet; Refills: 0, kb Product Selection Permitted - Prednisone 20 mg Oral Tablet - take 1 tablet by ORAL route once daily for 5 days; 5 tablet; Refills: 0, kb Product Selection Permitted Signatures: Dispatcher [employer] Tanya Parker FNP-C FNP-Ckb Nieto, Roman, MD MD rn Rees, Jessica, RN RN 5 Diego Maldonado RN RN mb8
[2022-08-23 16:12] VITALS: TEMP 98.6
[2022-08-23 16:13] VITALS: O2SAT 99
[2022-08-23 16:14] VITALS: BP 126/77
--- NOTE | 2022-08-25 06:35 | EKG ---
Test Date: 2022-08-23 Test Time: 13:00:23 Mobile Ui Designer: SUSAN MEASUREMENT RESULTS: Intervals: Rate: 74 MT: 144 QRSD: 74 QT: 430 QTc: 477 [place]: P: 69 MT: 144 QRS: 62 T: 38 INTERPRETIVE STATEMENTS: Normal sinus rhythm Cannot rule out Anterior infarct, age undetermined Abnormal ECG Compared to ECG 03/05/2019 23:31:10 Myocardial infarct finding now present Prolonged QT interval no longer present Electronically Signed On 08-25-22 06:30:53 PANEL MONITOR by Israel Whitten
== END 2022-08-23 15:32 | disposition home or self-care (01) ==
LOC: ER 12:18
DX: T80.52XA Anaphylactic reaction due to vaccination, initial encounter (principal); I10 Essential (primary) hypertension; M79.7 Fibromyalgia; F41.9 Anxiety disorder, unspecified; Z88.6 Allergy status to analgesic agent
CPT/HCPCS: 93005; 85025; 80048; 36415; 84484; 71045; 99283; J1200; J7030; J2930; J2405

== ENCOUNTER 2024-02-26 19:34 | Emergency (ER) | payer OTHER ==
[2024-02-26] MEDS ORDERED: FLUORESCEIN SODIUM 1 MG/WRAP ONE (20:29)
[2024-02-26] MEDS ORDERED: TETRACAINE HCL 0.5% 4ML OPTH ONE (20:29)
--- NOTE | 2024-02-26 21:27 | EDPHYS ---
Physician Documentation [facility] Name: Jerzy Liu Age: 58 yrs Sex: Female : 1965 Arrival Date: 02/26/2024 Time: 19:34 Bed 8 Private MD: ED Physician Serge Stone HPI: 02/25 20:05 This 58 yrs old Female presents to ER via Ambulatory with complaints of Eye sp4 Problem. 02/26 03:38 58-year-old female presents with acute blurry vision in the right eye onset today.. sp4 03:40 Denied vision loss or headache. Denied pain in the eye. Reports wearing contact lenses. sp4 . Historical: - Allergies: 02/25 19:59 Morphine; tl4 19:59 tramadol; tl4 19:59 Sulfasalazine; tl4 - PMHx: 19:59 Anxiety; Depression; Fibromyalgia; Hypertension; RA; tl4 - PSHx: 19:59 Cholecystectomy; Carpal tunnel surgery; Ligation of fallopian tube; Uterine ablation; tl4 - Immunization history:: Adult Immunizations unknown. - Infectious Disease History:: Denies. - Social history:: Smoking status: Patient denies any tobacco usage or history of. - Family history:: not pertinent. ROS: 02/26 03:40 Constitutional: Negative for fever, chills, and weight loss, Eyes: Negative for injury, sp4 pain, redness, and discharge, positive for blurry vision in the right eye Exam: 03:40 Visual Acuity: I have reviewed the nursing documentation. Visual acuity is within sp4 normal limits. 03:40 Constitutional: This is a well developed, well nourished patient who is awake, alert, and in no acute distress. Head/Face: Normocephalic, atraumatic. Eyes: Pupils equal round and reactive to light, extra-ocular motions intact. Lids and lashes normal. Conjunctiva and sclera are not injected. Cornea within normal limits. Periorbital areas with no swelling, redness, or edema. Normal visual cintron bilaterally, right eye pressure 34, left eye pressure 18. Normal bilateral appearance of optic discs without signs of papilledema ENT: Nares patent. No nasal discharge, no septal abnormalities noted. Tympanic membranes are normal and external auditory canals are clear. Oropharynx with no redness, swelling, or masses, exudates, or evidence of obstruction, uvula midline. Mucous membranes moist. Neck: Trachea midline, no thyromegaly or masses palpated, and no cervical lymphadenopathy. Supple, full range of motion without nuchal rigidity, or vertebral point tenderness. Chest/axilla: Normal chest wall appearance and motion. Nontender with no deformity. No lesions are appreciated. Cardiovascular: Regular rate and rhythm with a normal S1 and S2. No gallops, murmurs, or rubs. Normal PMI, no JVD. No pulse deficits. Respiratory: Lungs have equal breath sounds bilaterally, clear to auscultation and percussion. No rales, rhonchi or wheezes noted. No increased work of breathing, no retractions or nasal flaring. Abdomen/GI: Soft, with normal bowel sounds. No distension or tympany. No guarding or rebound. No evidence of tenderness throughout. Back: No spinal tenderness. No costovertebral tenderness. Skin: Warm, dry with normal turgor. Normal color with no rashes, no lesions, and no evidence of cellulitis. MS/ Extremity: Pulses equal, no cyanosis. Neurovascular intact. Full, normal range of motion. Neuro: Awake and alert, GCS 15, oriented to person, place, time, and situation. Cranial nerves II-XII grossly intact. Motor strength 5/5 in all extremities. Sensory grossly intact. Psych: Awake, alert, with orientation to person, place and time. Behavior, mood, and affect are within normal limits Vital Signs: 02/25 19:57 BP 153 / 65; Pulse 69; Resp 18; Temp 97.9(O); Pulse Ox 100% on R/A; Weight 83.91 kg; tl4 Height 5 ft. 3 in. ; Pain 0/10; 20:30 BP 112 / 58; Pulse 60; Resp 16; Pulse Ox 98% ; jj7 21:31 BP 117 / 46; Pulse 67; Resp 19; Temp 98; Pulse Ox 100% ; Pain 0/10; jj7 19:57 Body Mass Index 32.77 (83.91 kg, 160.02 cm) tl4 19:57 Pain Scale: Adult tl4 21:31 Pain Scale: Adult jj7 Jyotsna Coma Score: 02/26 03:40 Eye Response: spontaneous(4). Motor Response: obeys commands(6). Verbal Response: sp4 oriented(5). Total: 15. MDM: 02/25 20:07 Patient medically screened. sp4 21:29 ED course: Right eye pressures 34 and 37, left eye pressure was 18 and 19 - measured sp4 with Fredrick-Pen. 02/26 03:40 Differential diagnosis: Corneal abrasion of Corneal ulcer of Foreign body in Acute sp4 iritis of Acute glaucoma in Data reviewed: vital signs, nurses notes. ED course: Patient has reactive pupil but, elevated right eye pressure up to 34-37. Right eye pupil is larger than left but is reactive. There is no vomiting or headache. Patient was discussed with Dr. Browne with ophthalmology who did not advise any acute medications but advised patient contact his office tomorrow morning for an urgent appointment. Patient was advised to call Dr. Browne office for an appointment at 9 AM. . 02/25 20:23 Order name: Eye Tray; Complete Time: 20:35 sp4 Administered Medications: 02/25 21:12 Drug: Tetracaine Ophthalmic Drops 0.5 % 1 drops Ophthalmic once {Note: ADMIN BY DR shaye DELCID.} Route: Ophthalmic; Site: right eye; 21:12 Drug: Fluorescein Ophthalmic Strip 1 strip Ophthalmic once {Note: ADMIN BY DR DELCID.} jj7 Route: Ophthalmic; Site: right eye; Disposition Summary: 02/26/24 21:27 Discharge Ordered Problem: new sp4 Symptoms: have improved sp4 Condition: Stable sp4 Diagnosis - Elevated right eye pressure, right eye blurry vision sp4 - Right eye vision changes sp4 Followup: sp4 - With: Mikhail Browne MD - When: 24 Hours - Reason: Recheck today's complaints Discharge Instructions: - Discharge Summary Sheet sp4 - Glaucoma, [id number] sp4 Forms: - Patient Portal Instructions sp4 Signatures: Henry Ochoa RN RN Lexa Magallon RN RN jj7 Serge Stone MD MD sp4 LogJak vallecillo RN RN tl4
--- NOTE | 2024-02-26 21:27 | ER ---
Nurse's Notes [facility] Name: Jerzy Liu Age: 58 yrs Sex: Female : 1965 Arrival Date: 02/26/2024 Time: 19:34 Bed 8 Private MD: Diagnosis: Elevated right eye pressure, right eye blurry vision;Right eye vision changes Presentation: 02/25 19:57 Chief complaint: Patient states: Pt c/o right pupil being dilated since 1529 today. Pt tl4 states she has blurred vision "around the edges". Pt denies any injury, MARIE. Coronavirus screen: At this time, the client does not indicate any symptoms associated with coronavirus-19. Ebola Screen: No symptoms or risks identified at this time. Initial Sepsis Screen: Does the patient meet any 2 criteria? No. Patient's initial sepsis screen is negative. Does the patient have a suspected source of infection? No. Patient's initial sepsis screen is negative. Risk Assessment: Do you want to hurt yourself or someone else? Patient reports no desire to harm self or others. Onset of symptoms was February 26, 2024 at 15:30. 19:57 Method Of Arrival: Ambulatory tl4 19:57 Acuity: AKREEN 3 tl4 Triage Assessment: 20:00 General: Appears in no apparent distress. Behavior is calm, cooperative. Pain: Denies tl4 pain. EENT: Eyes right eye is dilated. 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 Gait is steady, Speech is normal, Facial symmetry appears normal. Cardiovascular: Capillary refill < 3 seconds Patient's skin is warm and dry. Respiratory: Airway is patent Respiratory effort is even, unlabored, Respiratory pattern is regular, symmetrical. GI: No signs and/or symptoms were reported involving the gastrointestinal system. : No signs and/or symptoms were reported regarding the genitourinary system. Derm: No signs and/or symptoms reported regarding the dermatologic system. Musculoskeletal: No signs and/or symptoms reported regarding the musculoskeletal system. Historical: - Allergies: 19:59 Morphine; tl4 19:59 tramadol; tl4 19:59 Sulfasalazine; tl4 - PMHx: 19:59 Anxiety; Depression; Fibromyalgia; Hypertension; RA; tl4 - PSHx: 19:59 Cholecystectomy; Carpal tunnel surgery; Ligation of fallopian tube; Uterine ablation; tl4 - Immunization history:: Adult Immunizations unknown. - Infectious Disease History:: Denies. - Social history:: Smoking status: Patient denies any tobacco usage or history of. - Family history:: not pertinent. Screenin:09 [facility] ED Fall Risk Assessment (Adult) History of falling in the last 3 months, jj7 including since admission No falls in past 3 months (0 pts) Confusion or Disorientation No (0 pts) Intoxicated or Sedated No (0 pts) Impaired Gait No (0 pts) Mobility Assist Device Used No (0 pt) Altered Elimination No (0 pt) Score/Fall Risk Level 0 - 2 = Low Risk Oriented to surroundings, Maintained a safe environment, Educated pt \\T\\ family on fall prevention, incl call for assistance when getting out of bed. Abuse screen: Denies threats or abuse. Nutritional screening: No deficits noted. Tuberculosis screening: No symptoms or risk factors identified. Assessment: 20:09 General: Appears in no apparent distress. comfortable, Behavior is calm, cooperative, jj7 appropriate for age. Pain: Denies pain. EENT: Eyes RIGHT EYE DILATED AT 5. Reports blurred vision in AROUND THE OUTER EDGES OF THE IRIS OF THE RIGHT EYE. Vital Signs: 19:57 BP 153 / 65; Pulse 69; Resp 18; Temp 97.9(O); Pulse Ox 100% on R/A; Weight 83.91 kg; tl4 Height 5 ft. 3 in. ; Pain 0/10; 20:30 BP 112 / 58; Pulse 60; Resp 16; Pulse Ox 98% ; jj7 21:31 BP 117 / 46; Pulse 67; Resp 19; Temp 98; Pulse Ox 100% ; Pain 0/10; jj7 19:57 Body Mass Index 32.77 (83.91 kg, 160.02 cm) tl4 19:57 Pain Scale: Adult tl4 21:31 Pain Scale: Adult jj7 Jyotsna Coma Score: 02/26 03:40 Eye Response: spontaneous(4). Motor Response: obeys commands(6). Verbal Response: sp4 oriented(5). Total: 15. ED Course: 02/25 19:37 Patient arrived in ED. ra3 19:59 Triage completed. tl4 20:01 Arm band placed on right wrist. tl4 20:05 Serge Stone MD is Attending Physician. sp4 20:09 Patient has correct armband on for positive identification. Placed in gown. Bed in low jj7 position. Call light in reach. Side rails up X2. Provided Education on: USE OF THE CALL LYNN. Warm blanket given. 20:26 Henry Ochoa, RN is Primary Nurse. rv 21:15 Assist provider with eye exam of right eye. using fluorescein stain, Performed by shaye Stone MD Patient tolerated well. 21:25 Mikhail Browne MD is Referral Physician. sp4 21:31 Patient did not have IV access during this emergency room visit. j Administered Medications: 21:12 Drug: Tetracaine Ophthalmic Drops 0.5 % 1 drops Ophthalmic once {Note: ADMIN BY DR shaye DELCID.} Route: Ophthalmic; Site: right eye; 21:12 Drug: Fluorescein Ophthalmic Strip 1 strip Ophthalmic once {Note: ADMIN BY DR DELCID.} deo Route: Ophthalmic; Site: right eye; Medication: 20:09 VIS not applicable for this client. j Outcome: 21:27 Discharge ordered by . sp4 21:31 Discharged to home ambulatory, jj7 21:31 Condition: improved 21:31 Discharge instructions given to patient, Instructed on discharge instructions, follow up and referral plans. Demonstrated understanding of instructions, follow-up care, 21:37 Patient left the ED. jj7 Signatures: Henry Ochoa, RN Lexa Jaffe RN RN jj7 Potepalov, Sergey, MD MD sp4 Jak Nuñez RN RN tl4 Lisa Zelaya 3
[2024-02-26 21:55] VITALS: BP 117/46; TEMP 98; O2SAT 100
== END 2024-02-26 21:37 | disposition home or self-care (01) ==
LOC: ER 19:34
DX: H40.051 Ocular hypertension, right eye (principal); H53.8 Other visual disturbances; I10 Essential (primary) hypertension; Z88.2 Allergy status to sulfonamides; Z88.5 Allergy status to narcotic agent
CPT/HCPCS: 99283